=== PATIENT | male | born 1980 | race American Indian/Alaskan Native ===

== ENCOUNTER 2024-08-19 14:36 | Emergency (ER) | payer MEDICAID, OTHER ==
[~2024-08-19] VITALS: Ht 188 cm; Wt 128.8 kg
[2024-08-19 15:28] LABS: Basophils # (auto) 0 10 ^3/uL (0-0.2); Basophils % (auto) 0.3 % (0.0-2.0); Eosinophils # (auto) 0.1 10 ^3/uL (0-0.8); Eosinophils % (auto) 1.6 % (0.0-7.0); Lymphocytes # (auto) 1.2 10 ^3/uL (0.4-5.4); Monocytes # (auto) 0.5 10 ^3/uL (0-1.3)
[2024-08-19 15:31] LABS: Chloride 107 mmol/L (98-107); Hematocrit 49.1 % (41.0-53.0); Hemoglobin 17.4 g/dL (13.5-17.5); Lymphocytes % (auto) 16.3 % (10.0-50.0); Mean Corpuscular Hemoglobin 34.1 pg (28.0-32.0); Mean Corpuscular Hgb Conc. 35.3 g/dL (32.0-36.0); Mean Corpuscular Volume 96.4 fL (80.0-100.0); Monocytes % (auto) 6.2 % (0.0-12.0); Neutrophils # (auto) 5.5 10 ^3/uL (1.6-8.6); Neutrophils % (auto) 75.6 % (37.0-80.0); Nucleated Red Blood Cells % 0.6 %; Platelet Count (auto) 185 10^3/uL (140-450); Potassium 4.4 mmol/L (3.5-5.1); Red Cell Distribution Width 12.8 % (11.8-14.3); Sodium 142 mmol/L (136-145); White Blood Cell 7.3 10^3/uL (4.4-10.8)
[2024-08-19 15:32] LABS: Anion Gap 5 (5-15); Calcium 9.7 mg/dL (8.7-10.4); Carbon Dioxide 30 mmol/L (20-31)
[2024-08-19 15:37] LABS: BUN/Creatinine Ratio 17.3 (10.0-20.0); Blood Urea Nitrogen 17 mg/dL (9-23); Glucose 107 mg/dL (74-106)
[2024-08-19] MEDS ORDERED: PANT40TA2 PO (16:33)
[2024-08-19 16:43] LABS: Urine Bacteria None Seen /hpf (None Seen)
[2024-08-19 17:05] LABS: Urine Blood Negative /uL (Negative); Urine Clarity Clear (Clear); Urine Color Yellow (Yellow); Urine Mucus FEW (None Seen); Urine Protein, UAD Negative (Negative); Urine Specific Gravity 1.029 (1.001-1.035); Urine Urobilinogen Normal (Negative); Urine WBC 1 /hpf (0 - 3); Urine pH 5.5 (5.0-9.0)
[2024-08-19] MEDS: MAALOX PLUS or MAALOX 30 ML PO ONE (17:15)
[2024-08-19] MEDS: DONNATAL 5ml ORAL Elix (BELLADONNA ALK-PHENOBARB) PO ONE (17:15)
[2024-08-19] MEDS: LIDOCAINE VISCOUS 2% 15ML UD PO ONE (17:15)
[2024-08-19 17:30] VITALS: BP 121/63; PULSE 85; RESP 19; TEMP 98; O2SAT 98
== END 2024-08-19 17:32 | disposition home or self-care (01) ==
LOC: ER 14:36
DX: K29.70 Gastritis, unspecified, without bleeding (principal); Z79.899 Other long term (current) drug therapy
CPT/HCPCS: 36415; 80048; 81001; 85025

== ENCOUNTER 2024-11-12 12:07 | Emergency (ER) | payer MEDICAID ==
[~2024-11-12] VITALS: Ht 188 cm; Wt 130.7 kg
[~2024-11-12 12:07] MED LIST: PANT40TA2 PO
--- NOTE | 2024-11-12 12:54 | ED.PDOC ---
GI ASSESSMENT HPI Comments 43y M who presents to the ED for chief complaint of abdominal pain. Pt states 1 days prior, during 12 PM noon, pt states he noticed blood in stool. Pt states afterwards, he started to have epigastric abdominal pain, non-radiating, burning in nature, with no associated exacerbating or relieving factors. Pt has associated nausea but denies vomiting, fever, cough ,chills, dysuria, chest pain or shortness of breath. Pt states he also has bowel movement earlier this AM and denies any blood in stool. Pt otherwise states he has been taking olympic starting 6 months prior. Pt has noted stable vitals in the ED. Pt otherwise denies any other symptoms at this time. Chief Complaint: Abdominal Pain Time Seen by MD: 12:50 Primary Care Provider: ZARIA Dawson Notes: Nurses Notes, Medications, Allergies Allergies: Coded Allergies: NO KNOWN ALLERGIES (Unverified , 08/19/24) Home Meds Active Scripts Hydrocortisone Acetate (Anusol-Hc) 25 Mg Sup, 1 SUPP OR BID, #14 SUPP Prov:RAMA ARNOLD MD 11/12/24 Pantoprazole Sodium Sesquihydr (Protonix) 40 Mg Tab, 40 MG PO DAILY for 5 Days, #5 TAB Prov:RAMA ARNOLD MD 11/12/24 Information Source: Patient Mode of Arrival: Ambulatory Brought in by: self Timing: Hours Duration: Since onset Prehospital treatment: None Quality: Burning Vomitus: None Stool: Blood Streaked Severity: Moderate Recent: None Recent Hx of: Diabetes Pain Location: Epigastric Modifying Factors: Nothing Associated sign and symptoms: Nausea, Abdominal Pain, Blood in Stool Past Medical History PAST MEDICAL HISTORY: DM Surgical History: Denies all surgeries Family History Family History: Unknown Social History Smoker: Non-Smoker Alcohol: Denies ETOH Use Drugs: Denies Drug Use Lives In: Home Constitutional: denies: chills, diaphoresis, fatigue, fever, malaise, sweats, weakness, others EENTM: denies: blurred vision, double vision, ear bleeding, ear discharge, ear drainage, ear pain, ear ringing, eye pain, eye redness, hearing loss, mouth pain, mouth swelling, nasal discharge, nose bleeding, nose congestion, nose pain, photophobia, tearing, throat pain, throat swelling, voice changes, others Respiratory: denies: cough, hemoptysis, orthopnea, SOB at rest, shortness of breath, SOB with excertion, stridor, wheezing, others Cardiovascular: denies: chest pain, dizzy spells, diaphoresis, Dyspnea on exertion, edema, irregular heart beat, left arm pain, lightheadedness, palpitations, PND, syncope, others Gastrointestinal: reports: abdominal pain, blood streaked bowels, nausea; denies: abdomen distended, constipated, diarrhea, dysphagia, difficulty swallowing, hematemesis, melena, poor appetite, poor fluid intake, rectal bleeding, rectal pain, vomiting, others Genitourinary: denies: burning, dysuria, flank pain, frequency, hematuria, incontinence, penile discharge, penile sore, pain, testicle pain, testicle swelling, urgency, others Neurological: denies: dizziness, fainting, headache, left sided numbness, left sided weakness, numbness, paresthesia, pre-existing deficit, right sided numbness, right sided weakness, seizure, speech problems, tingling, tremors, weakness, others Musculoskeletal: denies: back pain, gout, joint pain, joint swelling, muscle pain, muscle stiffness, neck pain, others Integumetry: denies: bruises, change in color, change in hair/nails, dryness, laceration, lesions, lumps, rash, wounds, others Allergic/Immunocompromised: denies: Difficulty Healing, Frequent Infections, Hives, Itching, others Hematologic/Lymphatic: denies: anemia, blood clots, easy bleeding, easy bruising, swollen glands, others Endocrine: denies: excessive hunger, excessive sweating, excessive thirst, excessive urination, flushing, intolerance to cold, intolerance to heat, unexplained weight gain, unexplained weight loss, others Psychiatric: denies: anxiety, bipolar disorder, depression, hopeless, panic disorder, schizophrenia, sleepless, suicidal, others All Other Systems: Reviewed and Negative Physical Exam General Appearance: Mild Distress HEENT: Normal ENT Inspection, Pharynx Normal, TMs Normal Neck: Full Range of Motion, Non-Tender, Normal, Normal Inspection Respiratory: Chest Non-Tender, Lungs Clear, No Accessory Muscle Use, No Re spiratory Distress, Normal Breath Sounds Cardiovascular: No Edema, No JVD, No Murmur, No Gallop, Normal Peripheral Pulses, Regular Rate/Rhythm Breast Exam: Deferred Gastrointestinal: No Organomegaly, Non Tender, No Pulsatile Mass, Normal Bowel Sounds, Soft Genitalia: Deferred Pelvic: Deferred Rectal: Deferred Extremities: No calf tenderness, Normal capillary refill, Normal inspection, Normal range of motion, Non-tender, No pedal edema Musculoskeletal : Apperance: Normal 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 Was a procedure done?: No GI differential Dx Differential Diagnosis: Diverticular disease, Esophagitis, Gastritis/PUD, Gastroenteritis, GI hemorrhage, Pancreatitis, Bacterial, Viral Other Differential Diagnosis colitis, X-Ray, Labs, Meds, VS Vital Signs Date Time Temp Pulse Resp B/P (MAP) Pulse Ox O2 Delivery O2 Flow Rate FiO2 11/12/24 12:51 Room Air* 0 21 11/12/24 12:18 98.0 83 17 127/71 (89) 96 Lab Test 11/12/24 12:54 11/12/24 12:52 Range/Units Urine Color Yellow Yellow Urine Clarity Clear Clear Urine pH 5.5 5.0-9.0 Urine Specific Artemas 1.026 1.001-1.035 Urine Protein Negative Negative Urine Ketones Negative Negative Urine Blood Negative Negative /uL Urine Nitrite Negative Negative Urine Bilirubin Negative Negative Urine Urobilinogen Normal Negative mg/dL Urine Leukocyte Esterase Negative Negative /uL Urine RBC <1 0 - 3 /hpf Urine WBC <1 0 - 3 /hpf Urine Squamous Epithelial Cells None seen <5 /hpf Urine Bacteria None seen None Seen /hpf Urine Mucus Few None Seen Urine Glucose Normal Normal mg/dL White Blood Count 7.1 4.4-10.8 10^3/uL Red Blood Count 4.95 4.5-5.90 10^6/uL Hemoglobin 16.7 13.5-17.5 g/dL Hematocrit 47.8 41.0-53.0 % Mean Corpuscular Volume 96.5 80.0-100.0 fL Mean Corpuscular Hemoglobin 33.7 H 28.0-32.0 pg Mean Corpuscular Hemoglobin Concent 34.9 32.0-36.0 g/dL Red Cell Distribution Width 12.8 11.8-14.3 % Platelet Count 189 140-450 10^3/uL Mean Platelet Volume 8.3 6.9-10.8 fL Neutrophils (%) (Auto) 82.9 H 37.0-80.0 % Lymphocytes (%) (Auto) 11.8 10.0-50.0 % Monocytes (%) (Auto) 3.8 0.0-12.0 % Eosinophils (%) (Auto) 1.3 0.0-7.0 % Basophils (%) (Auto) 0.2 0.0-2.0 % Neutrophils # (Auto) 5.9 1.6-8.6 10 ^3/uL Lymphocytes # (Auto) 0.8 0.4-5.4 10 ^3/uL Monocytes # (Auto) 0.3 0-1.3 10 ^3/uL Eosinophils # (Auto) 0.1 0-0.8 10 ^3/uL Basophils # (Auto) 0 0-0.2 10 ^3/uL Nucleated Red Blood Cells 0.0 % Sodium Level 141 136-145 mmol/L Potassium Level 4.1 3.5-5.1 mmol/L Chloride Level 109 H 98-107 mmol/L Carbon Dioxide Level 28 20-31 mmol/L Anion Gap 4 L 5-15 Blood Urea Nitrogen 12 9-23 mg/dL Creatinine 0.87 0.700-1.30 mg/dL Glomerular Filtration Rate Calc 109 >90 mL/min BUN/Creatinine Ratio 13.8 10.0-20.0 Serum Glucose 111 H 74-106 mg/dL Calcium Level 9.7 8.7-10.4 mg/dL Total Bilirubin 1.7 H 0.2-1.0 mg/dL Aspartate Amino Transferase (AST) 29 13-40 U/L Alanine Aminotransferase (ALT) 50 H 7-40 U/L Alkaline Phosphatase 94 46-116 U/L Total Protein 7.2 5.7-8.2 g/dL Albumin 4.5 3.2-4.8 g/dL Lipase 61 H 12-53 U/L Exam: CT CT AB PEL WO CON-NO ORAL OR IV IMPRESSION: 1. No acute abdominal or pelvic findings. No hydronephrosis or nephrolithiasis. Possible proteinaceous or hemorrhagic right renal cyst. Radiation optimization: All CT scans at this facility use at least one of these dose optimization techniques: Automated exposure control mA and/or kV adjustment per patient size (includes targeted exams where dose is matched to clinical indication) or iterative reconstruction. HS:Y The CBC and chemistry panel are within normal limits The lipase is 61 The urine test is negative for any infection At this time, the patient was being discharged The patient will return to the emergency department's the condition worsens. Images Reviewed?: Images reviewed and evaluated by me Time of 1ST Reevaluation: 13:20 Reevaluation 1ST: Unchanged Patient Education/Counseling: Diagnosis, Treatment, Prognosis, Need For Follow Up Family Education/Counseling: No Family Present Additional Information - I reviewed the following notes from patient's past medical encounters: - The following tests were ordered, and results were reviewed by me: (Labs, X-R ay, EKG): cbc, cmp, ua, lipase, ct abdomen w/o contrast - Additional information was gathered from interviewing the following in dependent Historian: (Family, Other Providers, EMT): none - I reviewed and agreed with the following test results read by other provider: (X-ray, CT, US): radiologist - I discussed treatments and results with medical personnel and: (consultants, family): none Departure 1 Departure Time of Disposition: 14:20 Impression: Primary Impression: Rectal bleeding Additional Impression: Internal hemorrhoids Disposition: 01 HOME / SELF CARE / HOMELESS Condition: Fair e-Prescriptions Hydrocortisone Acetate (Anusol-Hc) 25 Mg Sup 1 SUPP OR BID, #14 SUPP Prov: RAMA ARNOLD MD 11/12/24 Pantoprazole Sodium Sesquihydr (Protonix) 40 Mg Tab 40 MG PO DAILY for 5 Days, #5 TAB Prov: RAMA ARNOLD MD 11/12/24 Discharged With: Self Critical Care Note Critical Care Time?: No Stability Stability form required: No Heart Score Heart Score: Heart Score Response (Comments) Value History N/A 0 EKG N/A 0 Age N/A 0 Risk Factors N/A 0 Troponin N/A 0 Total 0 I personally scribed for RAMA ARNOLD MD ([email or web address]) on 11/12/24 at 12:54. Electronically submitted by Jose Slaughter ([email or web address]). I personally scribed for RAMA ARNOLD MD ([email or web address]) on 11/12/24 at 14:16. Electronically submitted by Jose Slaughter ([email or web address]). RAMA ARNOLD MD Nov 12, 2024 12:54
--- NOTE | 2024-11-12 13:18 | DVH ---
Exam: CT CT AB PEL WO CON-NO ORAL OR IV History: pain Comparison Study: None Technique: Multidetector spiral CT of the abdomen and pelvis was performed from lung bases to pubic symphysis. Imaging was performed without IV contrast. Axial, coronal and sagittal multiplanar reform ats were obtained from the axial data set by the technologist. Radiation dose : Abdomen/Pelvis: CTDIvol 25 mGy, DLP 1571 mGy*cm. Findings: Evaluation of solid organs is limited due to lack of intravenous contrast use. Lung Bases: No acute or significant lung base finding. Normal heart size. No pleural or pericardial effusion. Liver: The liver is normal in size. No focal lesions. Gallbladder and biliary Tree: Unremarkable Spleen: Unremarkable Pancreas: The pancreas is grossly normal in appearance. Adrenal Glands: Unremarkable Kidneys: No hydronephrosis or nephrolithiasis. Exophytic right renal cystic lesion, likely a proteina ceous or hemorrhagic cyst. Bladder: Grossly unremarkable for degree of distention. Bowel: The stomach is grossly normal in appearance. Small bowel and colon are normal in caliber and d istribution. Normal appendix is visualized in the right lower quadrant without findings of appendici tis. Ascites: Absent Lymphadenopathy: No mesenteric, retroperitoneal or periportal lymphadenopathy. Abdominal wall and Mesentery: Unremarkable. Vasculature: The visualized abdominal aorta is normal in size and caliber. Evaluation of abdominal a nd pelvic vessels is limited due to lack of intravenous contrast. Pelvic Organs: Unremarkable Musculoskeletal: No aggressive focal bony lesions, acute fractures or dislocation. IMPRESSION: 1. No acute abdominal or pelvic findings. No hydronephrosis or nephrolithiasis. Possible proteinaceou s or hemorrhagic right renal cyst. Radiation optimization: All CT scans at this facility use at least one of these dose optimization jamie hniques: Automated exposure control mA and/or kV adjustment per patient size (includes targeted exams where dose is matched to clinical indication) or iterative reconstruction. HS:Y
[2024-11-12 13:31] LABS: Urine Bacteria None Seen /hpf (None Seen)
[2024-11-12 13:41] LABS: Basophils # (auto) 0 10 ^3/uL (0-0.2); Basophils % (auto) 0.2 % (0.0-2.0); Eosinophils # (auto) 0.1 10 ^3/uL (0-0.8); Eosinophils % (auto) 1.3 % (0.0-7.0); Hematocrit 47.8 % (41.0-53.0); Hemoglobin 16.7 g/dL (13.5-17.5); Lymphocytes # (auto) 0.8 10 ^3/uL (0.4-5.4); Lymphocytes % (auto) 11.8 % (10.0-50.0); Mean Corpuscular Hemoglobin 33.7 pg (28.0-32.0); Mean Corpuscular Hgb Conc. 34.9 g/dL (32.0-36.0); Mean Corpuscular Volume 96.5 fL (80.0-100.0); Monocytes # (auto) 0.3 10 ^3/uL (0-1.3); Monocytes % (auto) 3.8 % (0.0-12.0); Neutrophils # (auto) 5.9 10 ^3/uL (1.6-8.6); Neutrophils % (auto) 82.9 % (37.0-80.0); Platelet Count (auto) 189 10^3/uL (140-450); Red Blood Cells 4.95 10^6/uL (4.5-5.90); Red Cell Distribution Width 12.8 % (11.8-14.3); White Blood Cell 7.1 10^3/uL (4.4-10.8)
[2024-11-12 13:46] LABS: Albumin 4.5 g/dL (3.2-4.8); Alkaline Phosphatase 94 U/L (46-116); Anion Gap 4 (5-15); Aspartate Aminotransferase 29 U/L (13-40); BUN/Creatinine Ratio 13.8 (10.0-20.0); Blood Urea Nitrogen 12 mg/dL (9-23); Calcium 9.7 mg/dL (8.7-10.4); Carbon Dioxide 28 mmol/L (20-31); Potassium 4.1 mmol/L (3.5-5.1); Sodium 141 mmol/L (136-145); Total Protein 7.2 g/dL (5.7-8.2)
[2024-11-12 13:55] LABS: Urine Blood Negative /uL (Negative); Urine Clarity Clear (Clear); Urine Color Yellow (Yellow); Urine Mucus FEW (None Seen); Urine Protein, UAD Negative (Negative); Urine Specific Gravity 1.026 (1.001-1.035); Urine Squamous Epithelial Cell None Seen /hpf (<5); Urine Urobilinogen Normal (Negative); Urine WBC <1 /hpf (0 - 3); Urine pH 5.5 (5.0-9.0)
[2024-11-12 13:56] LABS: Alanine Aminotransferase 50 U/L (7-40); Bilirubin, Total 1.7 mg/dL (0.2-1.0); Chloride 109 mmol/L (98-107); Glucose 111 mg/dL (74-106); Lipase 61 U/L (12-53)
[2024-11-12] MEDS ORDERED: PANT40TA2 PO (14:19)
[2024-11-12] MEDS ORDERED: HYDR25SU21 PR (14:19)
[2024-11-12 14:39] VITALS: BP 104/73; PULSE 80; RESP 16; TEMP 98.2; O2SAT 96
== END 2024-11-12 14:41 | disposition home or self-care (01) ==
LOC: ER 12:07
DX: K64.8 Other hemorrhoids (principal); K92.1 Melena; E11.9 Type 2 diabetes mellitus without complications; Z79.899 Other long term (current) drug therapy
CPT/HCPCS: 36415; 74176; 80053; 81001; 83690; 85025

== ENCOUNTER 2025-07-20 11:10 | Inpatient (IN) | payer MEDICAID ==
[~2025-07-20] VITALS: Ht 185.4 cm; Wt 125.0 kg
[~2025-07-20 11:10] MED LIST changes: +HYDR25SU21 PR
--- NOTE | 2025-07-20 11:23 | ED.PDOC ---
Eye-HPI HPI Comments HPI: Poor Historian. 44-year-old male brought in by ambulance for evaluation of fever generalized weakness status post tonsillectomy one-week ago at somebody [facility]. Patient has been doing fine and saw his postoperative follow up this past Saturday yesterday and was told everything looks fine. Patient today started developing fever greater than 102 and persistent sore throat without bleeding and generalized weakness and chills. Per EMS, patient was tachycardic in the 160s and hypertensive in the 170s systolically with stable pulse ox. EMS gave him some Zofran for nausea. Patient's only complaint at this time is sore throat pain that is the same since he had his surgery. Patient has not been taking any antibiotics or any pain medications at home. Past Medical History: Diabetes Past Surgical History: Tonsillectomy REVIEW OF SYSTEMS: CONSTITUTIONAL: Denies acute: diaphoresis, HEAD: Denies acute: headache, photophobia Eyes: Denies acute: Double vision, vision loss, eye pain, eye discharge. EARS: Denies acute: tinnitus, hearing loss, ear discharge, ear pain, THROAT: Denies acute: swelling, difficulty swallowing , change in voice. NECK: Denies acute: neck pain, neck swelling, stiff neck. HEART: Denies acute : chest pain, palpitations, LUNGS: Denies acute: SOB, wheezing, cough, hemoptysis ABDOMEN: Denies acute: abdominal pain, Nausea, Vomiting, diarrhea, melena , hematemesis, hematochezia SKIN: Denies acute: rash, redness, lesions, itchiness. EXTREMITIES: Denies acute: calf pain, numbness, tingling, weakness, denies pain in extremity. Denies acute: Low back pain. Neuro: Denies acute: focal neurological deficit, motor or sensory focal neurological deficit, tremors, seizure like activity, confusion, dizziness, change in mental status, loss of bowel or bladder function, cauda equina like symptoms. : Denies acute: dysuria, hematuria, flank pain, increase in urinary frequency. PSYCH: Denies acute: hallucination, suicidal ideation, homicidal ideation. PHYSICAL EXAM: General: ----[id number]----acute distress, awake and alert. Head: normocephalic, atraumatic. Neck: supple, trachea is midline, no swelling. Throat: Normal phonation. No bleeding. Normal postsurgical findings. No airway obstruction, no swelling, no drooling. Eyes:, no erythema, no purulent discharge, no proptosis, no icterus. Heart: regular tachycardia, no significant murmur appreciated. Lungs: no apparent respiratory distress, Able to speak in full sentences. No wheezing, no rhonchi, no crackles. No stridors Clear to auscultation bilaterally. Abdomen: non tender to palpation, non distended, soft, no guarding, no rebound, + bowel sounds. Neuro: Awake, Alert, oriented to name, self, situation, follows commands GCS=15. Speech is normal. Skin: no petechia, no purpura, no cyanosis, non-pale, not jaundice. Lower extremities: --no - Pitting edema no deformity, no focal swelling, no calf TTP. Makes eye contact. moves all four extremities. Face: no apparent facial droop. No nuchal rigidity, Kernig's sign, Brudzinski's sign, no meningeal signs. ED COURSE: DISCLAIMER: This medical document was created using an electronic medical record system with voice recognition software and computerized dictation system. Although this d ocument has been carefully reviewed, there might still be some phonetic and typographical errors. Occasional wrong-word or "sound-alike" substitutions may have occurred due to the inherent limitations of voice recognition software. These areas are purely typographical due to imperfections of the software programs and do not reflect any compromise in the patient's medical care. Please read the chart carefully and recognize, using context, where these substitutions have occurred. Time Seen by MD: 11:23 Primary Care Provider: ZARIA Allergies: Coded Allergies: NO KNOWN ALLERGIES (Unverified , 08/19/24) Home Meds Active Scripts Hydrocortisone Acetate (Anusol-Hc) 25 Mg Sup, 1 SUPP RI BID, #14 SUPP Prov:RAMA ARNOLD MD 11/12/24 Pantoprazole Sodium Sesquihydr (Protonix) 40 Mg Tab, 40 MG PO DAILY for 5 Days, #5 TAB Prov:RAMA ARNOLD MD 11/12/24 Information Source: Patient, Emergency Med Personnel Was a procedure done? Was a procedure done?: No EENT DIFF Eye: N/A Ear: N/A Sore Throat: Epiglottitis, Hand Foot Mouth Disease, Herpangina, Herpetic Stomatitis, Mononeucleosis, Miguelito's Angina, Peritonsillar Abscess, Peritonsillar Cellulitis, Pharyngitis, Diptheria, Streptococcal, Viral Pharyngitis, URI Other Differential Diagnosis As far as generalized weakness: Includes but not limited to thyroid disease, encephalopathy, electrolyte abnormality, sepsis, infection, intracranial pathology, drug adverse effects, arrhythmia, kidney insufficiency, ACS, CVA, malignancy, anemia X-Ray, Labs, Meds, VS Vital Signs Date Time Temp Pulse Resp B/P (MAP) Pulse Ox O2 Delivery O2 Flow Rate FiO2 07/20/25 15:00 98 13 124/81 (95) 94 07/20/25 13:00 95 Nasal Cannula* 2 28 07/20/25 13:00 97.4 109 15 134/79 (97) 95 97.4 07/20/25 12:25 Nasal Cannula* 2 28 07/20/25 12:00 121 07/20/25 12:00 100.3 119 20 126/74 (91) 96 100.3 07/20/25 11:49 106/74 07/20/25 11:30 101.2 162 22 134/102 98 101.2 07/20/25 11:11 159 Lab Test 07/20/25 15:49 07/20/25 11:40 07/20/25 11:35 07/20/25 00:00 Range/Units Influenza Type A Antigen Negative Negative Influenza Type B Antigen Negative Negative Group A Streptococcus Rapid Negative Urine Color Yellow Yellow Urine Clarity Clear Clear Urine pH 6.0 5.0-9.0 Urine Specific Wilkinson 1.037 H 1.001-1.035 Urine Protein 1+ H Negative Urine Ketones Trace Negative Urine Blood Negative Negative /uL Urine Nitrite Negative Negative Urine Bilirubin Negative Negative Urine Urobilinogen Over Negative mg/dL Urine Leukocyte Esterase Negative Negative /uL Urine RBC 8 0 - 3 /hpf Urine Microscopic WBC 1 0-3 /HPF Urine Squamous Epithelial Cells Few <5 /hpf Urine Bacteria None seen None Seen /hpf Urine Mucus Few None Seen Urine Glucose 3+ H Normal mg/dL Urine Opiates Screen Pos NEGATIVE Urine Fentanyl Screen Neg NEGATIVE Urine Barbiturates Screen Neg NEGATIVE Urine Phencyclidine Screen Neg NEGATIVE Urine Amphetamines Screen Neg NEGATIVE Urine Benzodiazepines Screen Neg NEGATIVE Urine Cocaine Screen Neg NEGATIVE Urine Cannabinoids Screen Neg NEGATIVE White Blood Count 8.0 4.4-10.8 10^3/uL Red Blood Count 4.79 4.5-5.90 10^6/uL Hemoglobin 16.0 13.5-17.5 g/dL Hematocrit 44.4 41.0-53.0 % Mean Corpuscular Volume 92.7 80.0-100.0 fL Mean Corpuscular Hemoglobin 33.4 H 28.0-32.0 pg Mean Corpuscular Hemoglobin Concent 36.0 32.0-36.0 g/dL Red Cell Distribution Width 12.2 11.8-14.3 % Platelet Count 175 140-450 10^3/uL Mean Platelet Volume 7.7 6.9-10.8 fL Neutrophils (%) (Auto) 90.8 H 37.0-80.0 % Lymphocytes (%) (Auto) 4.7 L 10.0-50.0 % Monocytes (%) (Auto) 4.5 0.0-12.0 % Eosinophils (%) (Auto) 0.0 0.0-7.0 % Basophils (%) (Auto) 0.0 0.0-2.0 % Neutrophils # (Auto) 7.3 1.6-8.6 10 ^3/uL Lymphocytes # (Auto) 0.4 0.4-5.4 10 ^3/uL Monocytes # (Auto) 0.4 0-1.3 10 ^3/uL Eosinophils # (Auto) 0 0-0.8 10 ^3/uL Basophils # (Auto) 0 0-0.2 10 ^3/uL Nucleated Red Blood Cells 0.1 % Prothrombin Time 12.7 H 9.3-11.8 sec Prothrombin Time INR 1.22 H 0.9-1.15 Activated Partial Thromboplast Time 28.1 24.5-34.5 SEC Sodium Level 132 L 136-145 mmol/L Potassium Level 4.1 3.5-5.1 mmol/L Chloride Level 96 L 98-107 mmol/L Carbon Dioxide Level 24 20-31 mmol/L Anion Gap 12 5-15 Blood Urea Nitrogen 10 9-23 mg/dL Creatinine 0.79 0.700-1.30 mg/dL Glomerular Filtration Rate Calc 112 >90 mL/min BUN/Creatinine Ratio 12.7 10.0-20.0 Serum Glucose 279 H 74-106 mg/dL Hemoglobin A1c 6.0 H <5.7 % A1C Lactic Acid Level 1.9 0.4-2.0 mmol/L Calcium Level 8.9 8.7-10.4 mg/dL Magnesium Level 1.7 1.6-2.6 mg/dL Total Bilirubin 3.6 H 0.2-1.0 mg/dL Aspartate Amino Transferase (AST) 29 13-40 U/L Alanine Aminotransferase (ALT) 38 7-40 U/L Alkaline Phosphatase 117 H 46-116 U/L Troponin I High Sensitivity 3 L </=54 ng/L Total Protein 7.3 5.7-8.2 g/dL Albumin 4.3 3.2-4.8 g/dL Acetaminophen Level 3.0 L 10.0-20.0 UG/ML SARS-CoV-2 Antigen (Rapid) Negative NEGATIVE Microbiology Date/Time Source Procedure Growth Status 07/20/25 15:49 Throat Nose/Throat Culture - Preliminary Resulted 07/20/25 11:40 Voided Urine Urine Culture - Preliminary Resulted 07/20/25 11:35 Blood Blood Culture - Preliminary Resulted 07/20/25 11:35 Blood Blood Culture - Preliminary Resulted [place] [address] Ph: [phone] DIAGNOSTIC IMAGING Diagnostic Imaging Report : [id number] Signed PATIENT: RAQUEL PARK ACCT: [id number] UNIT: [id number] : 1980 LOC: ER ROOM / BED: / AGE / SEX: 44 / M ADM STATUS: REG ER SERVICE 1121 ORDERING PHYSICIAN: ROXANA REILLY DO PROCEDURE(s): CXRP - CHEST PORTABLE REASON: tachy fever ORDER NUMBER(s): [id number], ACCESSION NUMBER(s): [id number] EXAM: XY CHEST PORTABLE Indication: tachy fever Technique: Single frontal view of the chest was obtained Comparison: None FINDINGS: Lines and Tubes: None Lungs: No focal consolidation. Pleura: No effusion. No pneumothorax. Cardiomediastinal contours: Unremarkable Bones: No acute osseous abnormality. IMPRESSION: No acute cardiopulmonary disease. ATED BY: RHONDA HOLDEN MD DICTATED DATE/TIME: 07/20/251213 SIGNED BY: RHONDA HOLDEN MD SIGNED DATE/TIME: 07/20/251213 CC: Time of 1ST Reevaluation: 11:53 Reevaluation 1ST: N/A Patient Education/Counseling: Diagnosis, Treatment Family Education/Counseling: Other Comments MDM: patient presented with the above HPI.--fever generalized weak---workup was initiated. patient was found with the above mentioned diagnosis. the following medications were ordered: please refer to order lists of meds and tests obtained by myself Dr. Reilly. Patient ED course and VS have been stabilized. Patient has been reassessed in the ED and remained in a stable condition. Pertinent incidental findings were discussed with the patient and/or family. Patient/family voices understanding and is agreeable with plan. Patient has been observed in the ED adequate length of time to insure improvement/stability. Escalation of care considered: Consideration of escalation to observation or admission Patient was ADMITTED to the medicine team for further evaluation and treatment of their presentation. Sepsis criteria on arrival based on heart rate and tachypnea and finger and clinical picture. Sepsis bundle was initiated. All the reports of any imaging studies that were ordered by myself were reviewed by myself. 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 (07/20/25 ) Electrocardigram (07/20/25 11:21) Chest Portable (07/20/25 11:21) Accucheck (07/20/25 11:21) Blood Culture (07/20/25 11:21) Notify Md If Map <65 Or Bp<90 (07/20/25 11:21) If Map<65 Start Vasopressor (07/20/25 11:21) Sepsis Reassesment After Fluid (07/20/25 12:21) Vital Signs Date Time Temp Pulse Resp B/P (MAP) Pulse Ox O2 Delivery O2 Flow Rate FiO2 07/20/25 15:00 98 13 124/81 (95) 94 07/20/25 13:00 95 Nasal Cannula* 2 28 07/20/25 13:00 97.4 109 15 134/79 (97) 95 97.4 07/20/25 12:25 Nasal Cannula* 2 28 07/20/25 12:00 121 07/20/25 12:00 100.3 119 20 126/74 (91) 96 100.3 07/20/25 11:49 106/74 07/20/25 11:30 101.2 162 22 134/102 98 101.2 07/20/25 11:11 159 Laboratory Tests Test 07/20/25 11:35 Lactic Acid Level 1.9 mmol/L (0.4-2.0) White Blood Count 8.0 10^3/uL (4.4-10.8) Departure 1 Departure Time of Disposition: 12:09 Impression: Primary Impression: Sepsis Disposition: ADMITTED INPATIENT Admit to: [facility] Condition: Guarded Discharged With: Self Critical Care Note Critical Care Time?: Yes (1 hr-critical care time only) I personally scribed for ROXANA REILLY DO ([email or web address]) on 07/20/25 at 11:23. Electronically submitted by Jyotsna Jean ([email or web address]). I personally scribed for ROXANA REILLY DO ([email or web address]) on 07/20/25 at 12:49. Electronically submitted by Jyotsna Jean ([email or web address]). ROXANA REILLY DO Jul 20, 2025 11:23
--- NOTE | 2025-07-20 11:26 | ECG ---
[facility] Test Date: 2025-07-20 Test Time: 11:11:31 Pat Name: RAQUEL PARK Department: Room: [address] [place] [address] Gender: M Photograph Mounter: LUCIANA : 1980 Requested By: ROXANA REILLY Order Number: [id number] Reading MD: Jacques Machado Measurements Intervals [place]stein Rate: 159 P: 40 WI: 117 QRS: 261 QRSD: 93 T: 55 QT: 301 QTc: 490 Interpretive Statements Sinus tachycardia Left anterior fascicular block Abnormal R-wave progression, late transition Borderline prolonged QT interval Electronically Signed On 07-20-2025 16:40:04 PDT by Jacques Machado Please click the below link to view image of tracing.
[2025-07-20] MEDS: LACTATED RINGER'S 2,400 ML IV ONE (11:46)
[2025-07-20] MEDS ORDERED: CEFEPIME 1GM/50ML 50 ML IV ONE (11:46)
[2025-07-20] MEDS: CEFEPIME 1GM/50ML 50 ML IV ONE (11:48)
[2025-07-20] MEDS: fentaNYL CITRATE 100 MCG/2 ML VL IV ONE (11:49)
[2025-07-20 12:05] LABS: Hematocrit 44.4 % (41.0-53.0); Hemoglobin 16.0 g/dL (13.5-17.5); Mean Corpuscular Hemoglobin 33.4 pg (28.0-32.0); Mean Corpuscular Volume 92.7 fL (80.0-100.0); Nucleated Red Blood Cells % 0.1 %
[2025-07-20 12:13] LABS: INR 1.22 (0.9-1.15); Partial Thromboplastin Time 28.1 SEC (24.5-34.5); Prothrombin Time 12.7 sec (9.3-11.8)
--- NOTE | 2025-07-20 12:16 | DVH ---
EXAM: XY CHEST PORTABLE Indication: tachy fever Technique: Single frontal view of the chest was obtained Comparison: None FINDINGS: Lines and Tubes: None Lungs: No focal consolidation. Pleura: No effusion. No pneumothorax. Cardiomediastinal contours: Unremarkable Bones: No acute osseous abnormality. IMPRESSION: No acute cardiopulmonary disease.
[2025-07-20 12:17] LABS: Alanine Aminotransferase 38 U/L (7-40); Albumin 4.3 g/dL (3.2-4.8); Anion Gap 12 (5-15); BUN/Creatinine Ratio 12.7 (10.0-20.0); Blood Urea Nitrogen 10 mg/dL (9-23); Calcium 8.9 mg/dL (8.7-10.4); Carbon Dioxide 24 mmol/L (20-31); Magnesium 1.7 mg/dL (1.6-2.6); Potassium 4.1 mmol/L (3.5-5.1); Total Protein 7.3 g/dL (5.7-8.2)
[2025-07-20 12:18] LABS: Alkaline Phosphatase 117 U/L (46-116); Bilirubin, Total 3.6 mg/dL (0.2-1.0); Chloride 96 mmol/L (98-107); Glucose 279 mg/dL (74-106); Sodium 132 mmol/L (136-145)
[2025-07-20 12:37] LABS: Urine Protein, UAD 1+ (Negative)
[2025-07-20 13:00] VITALS: O2SAT 95
[2025-07-20] MEDS ORDERED: DEXTROSE (50%) 50ML SYRG IV PRN (16:15)
[2025-07-20] MEDS ORDERED: SORE THROAT SPRAY 6OZ BOTTLE MT PRN (16:15)
[2025-07-20] MEDS: SODIUM CHLORIDE 0.9% 1,000 ML IV SCH (16:23)
--- NOTE | 2025-07-20 16:41 | DVHHPRES ---
History of Present Illness Resident Creating Document: NICOLE ANTONY RESIDENT Reason for Visit: Generalized weakness History of Present Illness This is a 44-year-old male who was brought in by EMS to the ED with chief complain of fever and generalized weakness. PMH: Type 2 diabetes. PSH: Tonsillectomy performed on 07/14/2025. SH: Denies smoking, illicit drug use, rarely drinks alcohol. Lives with family. 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 FH: Noncontributory Allergies: None Home medications: Zoloft 50 mg p.o. q.d. Patient states that since yesterday he started experiencing fevers and chills accompanied with worsening generalized weakness and mild dizziness. He stated that he underwent a tonsillectomy last week, he states having taking pain medications such as acetaminophen with codeine and Tylenol. Denies taking any other medication. He was taking the pain medication due to his severe throat pain. He denies any recent sick contacts, denies being sick in the last four weeks. Denies any significant shortness of breath, chest pain, abdominal pain, nausea, vomiting, rash. Patient stated that today he was having shakiness in the morning and his heart was beating fast, per EMS he has tachycardia reach the 160s his blood pressure was also in the 170s. On arrival to the ED patient received sepsis protocol such as LR fluids, broad-spectrum antibiotics with cefepime, he also received dexamethasone and fentanyl. On my initial assessment, patient was seen and examined at bedside. Niece was present. Patient was able to communicate and mainly complained of sore throat, he was on supplemental oxygen through nasal cannula at 2 L. Past Medical History See HPI. Past Surgical History See HPI. Family History See HPI. Review of Systems Constitutional: Yes: Fever, Chills, Weakness, Malaise; No: Sweats, Other Eyes: No: Pain, Vision change, Conjunctivae inflammation, Eyelid inflammation, Other, Redness ENT: Throat pain; No: Ear pain, Ear discharge, Nose pain, Nose discharge, Nose congestion, Mouth pain, Mouth swelling, Throat swelling, Other Respiratory: No: Cough, Dry, Shortness of breath, SOB with excertion, Wheezing, Hemoptysis, Pleuritic Pain, Sputum, Wheezing, Other Cardiovascular: Palpitations; No: Chest Pain, Orthopnea, Paroxysmal Noc. Dyspnea, Edema, Lt Headedness, Other Gastrointestinal: No: Nausea, Vomiting, Abdominal Pain, Diarrhea, Constipation, Melena, Hematochezia, Other Genitourinary: No Dysuria, No Frequency, No Incontinence, No Hematuria, No Retention, No Other Musculoskeletal: No: other, neck pain, shoulder pain, arm pain, back pain, hand pain, leg pain, foot pain Skin: No: Rash, Lesions, Jaundice, Bruising, Other Neurological: No: Weakness, Numbness, Incoordination, Change in speech, Confusion, Seizures, Other Allergies: Coded Allergies: NO KNOWN ALLERGIES (Unverified , 08/19/24) Medications Current Medications Medications Dose Ordered Sig/Sherine Route Start Time Stop Time Status Last Admin Dose Admin Sodium Chloride 10 ml Q8HR IV 07/20/25 22:00 UNV Enoxaparin Sodium 40 mg DAILY SC 07/21/25 10:00 UNV Morphine Sulfate 1 mg Q6HPRN PRN IV 07/20/25 16:00 UNV Sodium Chloride 1,000 ml @ 150 mls/hr Q6H40M IV 07/20/25 16:00 UNV Piperacillin Sod/ Tazobactam Sod 100 ml @ 25 mls/hr Q6HR IV 07/20/25 18:00 UNV Diagnostic Test (Pha) 1 strip ACHS 07/20/25 17:00 UNV Insulin Human Regular ACHS SC 07/20/25 17:00 UNV Dextrose 50 ml UD PRN IV 07/20/25 16:15 UNV Exam Vital Signs Vital Signs Date Time Temp Pulse Resp B/P (MAP) Pulse Ox O2 Delivery O2 Flow Rate FiO2 07/20/25 15:00 98 13 124/81 (95) 94 07/20/25 13:00 Nasal Cannula* 2 28 07/20/25 13:00 97.4 97.4 Exam Physical examination as below: General: Awake, alert, in mild distress due to pain. HEENT: Head is normocephalic and atraumatic. Pupils are equal, round, and reactive to light. Extraocular muscles are intact. No nasal discharge. No facial trauma. Intraoral exam shows pharyngeal erythema, white exudate pharyngeal area. Neck: Supple with no cervical lymphadenopathy. Heart: Tachycardia, regular without murmur, rub, or gallop. Lungs: Equal breath sounds bilaterally with no wheezing, rales, or rhonchi. There is no chest wall tenderness or instability. Abdomen: No external sign of injury. Bowel sounds are present. Abdomen is soft, nontender. No rebound, no guarding, no rigidity. There are no palpable masses. There is no flank pain on exam. Extremities: Strong peripheral pulses. There is no clubbing, no cyanosis, and no edema. Skin: No rash. Neurologic: Cranial nerves II-XII intact without motor, sensory, or cerebellar deficit, no asterixis. Labs/Xrays Labs Test 07/20/25 11:40 07/20/25 11:35 Range/Units Urine Color Yellow Yellow Urine Clarity Clear Clear Urine pH 6.0 5.0-9.0 Urine Specific Leon 1.037 H 1.001-1.035 Urine Protein 1+ H Negative Urine Ketones Trace Negative Urine Blood Negative Negative /uL Urine Nitrite Negative Negative Urine Bilirubin Negative Negative Urine Urobilinogen Over Negative mg/dL Urine Leukocyte Esterase Negative Negative /uL Urine RBC 8 0 - 3 /hpf Urine Microscopic WBC 1 0-3 /HPF Urine Squamous Epithelial Cells Few <5 /hpf Urine Bacteria None seen None Seen /hpf Urine Mucus Few None Seen Urine Glucose 3+ H Normal mg/dL White Blood Count 8.0 4.4-10.8 10^3/uL Red Blood Count 4.79 4.5-5.90 10^6/uL Hemoglobin 16.0 13.5-17.5 g/dL Hematocrit 44.4 41.0-53.0 % Mean Corpuscular Volume 92.7 80.0-100.0 fL Mean Corpuscular Hemoglobin 33.4 H 28.0-32.0 pg Mean Corpuscular Hemoglobin Concent 36.0 32.0-36.0 g/dL Red Cell Distribution Width 12.2 11.8-14.3 % Platelet Count 175 140-450 10^3/uL Mean Platelet Volume 7.7 6.9-10.8 fL Neutrophils (%) (Auto) 90.8 H 37.0-80.0 % Lymphocytes (%) (Auto) 4.7 L 10.0-50.0 % Monocytes (%) (Auto) 4.5 0.0-12.0 % Eosinophils (%) (Auto) 0.0 0.0-7.0 % Basophils (%) (Auto) 0.0 0.0-2.0 % Neutrophils # (Auto) 7.3 1.6-8.6 10 ^3/uL Lymphocytes # (Auto) 0.4 0.4-5.4 10 ^3/uL Monocytes # (Auto) 0.4 0-1.3 10 ^3/uL Eosinophils # (Auto) 0 0-0.8 10 ^3/uL Basophils # (Auto) 0 0-0.2 10 ^3/uL Nucleated Red Blood Cells 0.1 % Prothrombin Time 12.7 H 9.3-11.8 sec Prothrombin Time INR 1.22 H 0.9-1.15 Activated Partial Thromboplast Time 28.1 24.5-34.5 SEC Sodium Level 132 L 136-145 mmol/L Potassium Level 4.1 3.5-5.1 mmol/L Chloride Level 96 L 98-107 mmol/L Carbon Dioxide Level 24 20-31 mmol/L Anion Gap 12 5-15 Blood Urea Nitrogen 10 9-23 mg/dL Creatinine 0.79 0.700-1.30 mg/dL Glomerular Filtration Rate Calc 112 >90 mL/min BUN/Creatinine Ratio 12.7 10.0-20.0 Serum Glucose 279 H 74-106 mg/dL Lactic Acid Level 1.9 0.4-2.0 mmol/L Calcium Level 8.9 8.7-10.4 mg/dL Magnesium Level 1.7 1.6-2.6 mg/dL Total Bilirubin 3.6 H 0.2-1.0 mg/dL Aspartate Amino Transferase (AST) 29 13-40 U/L Alanine Aminotransferase (ALT) 38 7-40 U/L Alkaline Phosphatase 117 H 46-116 U/L Troponin I High Sensitivity 3 L </=54 ng/L Total Protein 7.3 5.7-8.2 g/dL Albumin 4.3 3.2-4.8 g/dL SEPSIS Sepsis Screen Date sepsis recognized/suspect: Jul 20, 2025 Time Sepsis recognized/suspect: 1300 Recent Procedure: Yes On Antibiotic Therapy: Yes Respiratory Rate >20: No Heart Rate >90: Yes Temp<36 C (96.8 F) or >38.3 C: Yes SBP <90 or MAP <65 mmHG: No New Acute Mental Status Change: No Is the patient on CPAP, BIPAP,: No Physician Orders Long Filler Cigar Roller Machine (07/20/25 ) Chest Portable (07/20/25 11:21) Accucheck (07/20/25 11:21) Blood Culture (07/20/25 11:21) Cefepime 1gm/50ml (Maxipime 1gm/50ml) (07/20/25 22:00) Notify Md If Map <65 Or Bp<90 (07/20/25 11:21) If Map<65 Start Vasopressor (07/20/25 11:21) Sepsis Reassesment After Fluid (07/20/25 12:21) Admit (07/20/25 15:49) Allergies (07/20/25 15:49) Code Status (07/20/25 15:49) Full Liq Diet (07/20/25 Dinner) Sodium Chloride Lock (Saline Lock Ns) (07/20/25 22:00) Enoxaparin Sodium (Lovenox) (07/21/25 10:00) Complete Blood Count (07/21/25 04:00) Comprehensive Metabolic Panel (07/21/25 04:00) Condition: Fair (07/20/25 15:49) Morphine Sulfate Injection (07/20/25 16:00) Oxygen By Nasal Cannula (07/20/25 15:49) Notify Md Of Changes From Base (07/20/25 15:49) Sodium Chloride 0.9% (07/20/25 16:00) Lactic Acid W/ Reflex Order (07/20/25 15:49) Urine Bacterial Culture (07/20/25 15:49) Covid19 Antigen Génesis (07/20/25 ) Rapid Influenza A&B (07/20/25 15:49) Drug Screen (07/20/25 15:49) Blood Alcohol (07/20/25 15:49) LIVER (07/20/25 15:49) Rapid Strep Screen - Throat (07/20/25 15:49) Hemoglobin A1c (07/20/25 16:02) Zosyn Extended Infusion (07/20/25 18:00) Glucose Blood (Accu-Chek Comfort Curve T (07/20/25 17:00) Mild Sliding Scale (07/20/25 17:00) Dextrose 50% Syringe (07/20/25 16:15) Sore Throat [place] (Chloraseptic) (07/20/25 16:15) Vital Signs Date Time Temp Pulse Resp B/P (MAP) Pulse Ox O2 Delivery O2 Flow Rate FiO2 07/20/25 15:00 98 13 124/81 (95) 94 07/20/25 13:00 95 Nasal Cannula* 2 28 07/20/25 13:00 97.4 109 15 134/79 (97) 95 97.4 07/20/25 12:25 Nasal Cannula* 2 28 07/20/25 12:00 121 07/20/25 12:00 100.3 119 20 126/74 (91) 96 100.3 07/20/25 11:49 106/74 07/20/25 11:30 101.2 162 22 134/102 98 101.2 07/20/25 11:11 159 Laboratory Tests Test 07/20/25 11:35 Lactic Acid Level 1.9 mmol/L (0.4-2.0) White Blood Count 8.0 10^3/uL (4.4-10.8) Medications Medications Dose Ordered Sig/Sherine Route Start Time Stop Time Status Last Admin Dose Admin Cefepime HCl 50 ml @ 50 mls/hr ONCE ONCE IV 07/20/25 11:45 07/20/25 12:44 DC 07/20/25 11:48 50 MLS/HR Dexamethasone Sodium Phosphate 10 mg ONCE ONCE IV 07/20/25 11:30 07/20/25 11:43 DC 07/20/25 11:49 10 MG Fentanyl Citrate 100 mcg ONCE ONCE IV 07/20/25 11:30 07/20/25 11:43 DC 07/20/25 11:49 100 MCG Lactated Ringer's 2,400 ml @ 2,400 mls/hr ONCE ONCE IV 07/20/25 11:30 07/20/25 12:29 DC 07/20/25 11:46 2,400 MLS/HR Assessment/Plan Assessment/Plan #Sepsis, rule out bacteremia, strep throat infection, viral syndrome #Pharyngitis, likely bacterial #Acute hypoxic respiratory failure IV fluid bolus has been given. Continue maintenance fluid NS 150 mL/hour Order lactic acid Pending blood culture, urine culture, rapid strep throat test, COVID, influenza test. Continue Zosyn IV Sore throat spray as needed #Hyperbilirubinemia, rule out liver disease, hepatitis, acetaminophen intoxication #Secondary coagulopathy Order liver ultrasound Order hepatitis panel Order acetaminophen level Order urine tox and alcohol level #Type 2 diabetes with hyperglycemia SSI mild Ordered A1c #Sinus tachycardia due to above #QT prolongation Avoid QT prolonging medications #Obesity Counseled on lifestyle modification We spent over 33 minutes explaining the patient's plan, and had goals of care discussion. Full code Plan discussed with: Patient, Other (RN) My Orders Orders - NICOLE ANTONY RESIDENT Procedure Category Date Status Time Admit ADMIT 07/20/25 Transmitted 15:49 Allergies ELIDIA 07/20/25 In Process 15:49 Code Status CODE 07/20/25 Transmitted 15:49 Full Liq Diet DIET 07/20/25 Transmitted Dinner Sodium Chloride Lock PHA 07/20/25 Logged (Saline Lock Ns) 22:00 Enoxaparin Sodium PHA 07/21/25 Logged (Lovenox) 10:00 Complete Blood Count LAB 07/21/25 Verified 04:00 Comprehensive LAB 07/21/25 Verified Metabolic Panel 04:00 Condition: Fair ELIDIA 07/20/25 In Process 15:49 Morphine Sulfate PHA 07/20/25 Logged Injection 16:00 Oxygen By Nasal RT 07/20/25 Transmitted Cannula 15:49 Notify Of Changes ELIDIA 07/20/25 In Process From Base 15:49 Sodium Chloride 0.9% PHA 07/20/25 Logged 16:00 Lactic Acid W/ Reflex LAB 07/20/25 Logged Order 15:49 Urine Bacterial NADIA 07/20/25 Logged Culture 15:49 Covid19 Antigen Génesis LAB 07/20/25 Logged Rapid Influenza A&B LAB 07/20/25 Logged 15:49 Drug Screen LAB 07/20/25 Logged 15:49 Blood Alcohol LAB 07/20/25 Logged 15:49 LIVER US 07/20/25 Logged 15:49 Rapid Strep Screen - LAB 07/20/25 Logged Throat 15:49 Hemoglobin A1c LAB 07/20/25 Transmitted 16:02 Zosyn Extended PHA 07/20/25 Transmitted Infusion 18:00 Glucose Blood PHA 07/20/25 Transmitted (Accu-Chek Comfort 17:00 Mild Sliding Scale PHA 07/20/25 Transmitted 17:00 Dextrose 50% Syringe PHA 07/20/25 Transmitted 16:15 Sore Throat [place] PHA 07/20/25 Transmitted (Chloraseptic) 16:15 Date of Service: Jul 20, 2025 Billing Provider: NACHO BURNS MD Common Visit Codes: 85794-QLHUSIQ INP/OBS CARE (HIGH) Secondary Visit Codes: [id number] CARE PLAN 30 MINUTES NICOLE ANTONY RESIDENT Jul 20, 2025 16:41 NACHO BURNS MD Jul 24, 2025 00:32
--- NOTE | 2025-07-20 16:53 | DVH ---
Technique: Real-time ultrasound imaging of the abdomen was performed with grayscale and color Doppler . Indication: hyperbilirubinemia Comparison: None Findings: Liver measures 21.4 cm. It is increased in echogenicity and echotexture without focal mass. Portal v ein is normal in caliber and demonstrates normal hepatopetal flow. Gallbladder demonstrates no evidence for cholelithiasis. There is no pericholecystic fluid. The wall thickness is normal. The common bile duct measures 4 mm. No intrahepatic biliary ductal dilatation. The right kidney measures 11.4 cm. There is no hydronephrosis or sonographic evidence of nephrolithia sis. The visualized portion of the pancreas is unremarkable. Spleen measures cm. The visualized portion of the IVC is unremarkable. Impression: Echogenic liver which can be seen with hepatic steatosis, cirrhosis. Hepatomegaly
[2025-07-20 17:20] LABS: Rapid Strep A Screen-Throat Negative
[2025-07-20 17:25] LABS: COVID19 ANTIGEN SOFIA FIA NEGATIVE (NEGATIVE)
[2025-07-20] MEDS: InsuLIN REG 1unit/0.01ml Soln (100units/ml) SC SCH (17:47)
[2025-07-20] MEDS: ACCU-CHEK COMFORT CURVE STRIP VI SCH (17:50)
[2025-07-20] MEDS: PIPERACILLIN-TAZOB 3.375GM 100 ML IV SCH (18:31)
[2025-07-20 20:00] VITALS: BP 120/73; PULSE 97; RESP 18; TEMP 99.1; O2SAT 96
[2025-07-20] MEDS: MORPHINE SULFATE INJ 2 MG/ml SYRG IV PRN (20:20)
[2025-07-20 21:04] VITALS: PULSE 96; RESP 20; O2SAT 96
[2025-07-20] MEDS ORDERED: CEFEPIME 1GM/50ML 50 ML IV SCH (22:00)
[2025-07-20] MEDS: SODIUM CHLOR 0.9% PF (SALINE LOCK) 10ML VIAL/SYR IV SCH (22:01)
[2025-07-20 22:30] VITALS: BP 140/73; PULSE 96; RESP 20; TEMP 98.6; O2SAT 96
[2025-07-20 23:48] LABS: Benzodiazephine Screen, Urine Neg (NEGATIVE)
[2025-07-20 23:49] LABS: Amphetamine Screen, Urine Neg (NEGATIVE); Barbiturate Scree,Urine Neg (NEGATIVE); Cannabinoid Screen, Urine Neg (NEGATIVE); Cocaine Screen, Urine Neg (NEGATIVE); Opiate Scree,Urine Pos (NEGATIVE); Phencyclidine Screen, Urine Neg (NEGATIVE)
[2025-07-21] VITALS (9 sets, daily range): BP systolic 119–143; BP diastolic 70–85; PULSE 90–109; RESP 16–18; TEMP 98.2–103.1; O2SAT 94–97
[2025-07-21 07:57] LABS: Hematocrit 39.5 % (41.0-53.0); Hemoglobin 14.3 g/dL (13.5-17.5); Mean Corpuscular Hemoglobin 33.8 pg (28.0-32.0); Mean Corpuscular Volume 93.2 fL (80.0-100.0); Nucleated Red Blood Cells % 0.1 %
[2025-07-21 07:59] LABS: Alanine Aminotransferase 39 U/L (7-40); Albumin 4.1 g/dL (3.2-4.8); Alkaline Phosphatase 96 U/L (46-116); Anion Gap 10 (5-15); BUN/Creatinine Ratio 12.4 (10.0-20.0); Blood Urea Nitrogen 11 mg/dL (9-23); Calcium 8.7 mg/dL (8.7-10.4); Carbon Dioxide 29 mmol/L (20-31); Potassium 4.1 mmol/L (3.5-5.1); Total Protein 7.0 g/dL (5.7-8.2)
[2025-07-21 08:04] LABS: Bilirubin, Total 2.3 mg/dL (0.2-1.0); Chloride 95 mmol/L (98-107); Glucose 265 mg/dL (74-106); Sodium 134 mmol/L (136-145)
[2025-07-21] MEDS ORDERED: DEXTROSE (50%) 50ML SYRG IV PRN (09:00)
[2025-07-21] MEDS: SODIUM CHLORIDE 0.9% 1,000 ML IV ONE ×3 (11:25→22:26)
[2025-07-21] MEDS: ACCU-CHEK COMFORT CURVE STRIP VI SCH (12:00)
[2025-07-21] MEDS ORDERED: IOHEXOL 300 MG/ML 100ML BOTTLE IJ ONE (12:03)
[2025-07-21] MEDS: SERTRALINE HCL 50 MG TAB PO SCH (13:10)
[2025-07-21] MEDS: InsuLIN REG 1unit/0.01ml Soln (100units/ml) SC SCH (14:00)
[2025-07-21] MEDS: LIDOCAINE 5% TOPICAL PATCH TOP SCH (14:44)
--- NOTE | 2025-07-21 15:16 | DVH ---
CT Neck with Contrast CLINICAL HISTORY: possible abscess, neck pain, swelling TECHNIQUE: CT of the neck was performed with intravenous contrast. This exam was performed according to our departmental dose optimization program. Up-to-date CT equipment and radiation dose reduction t echniques are utilized as appropriate. WID: COMPARISON: None Neck findings: Brain and Orbits: The visualized intracranial and intraorbital structures appear grossly unremarkable . Sinuses and Mastoids: There is a mucous retention cyst or polyp in the right maxillary sinus. The vis ualized paranasal sinuses and mastoid air cells are clear. Parotid and Submandibular Glands: The parotid and submandibular glands appear unremarkable. Cervical Lymph Nodes: No significant cervical adenopathy is seen. Thyroid: No significant thyroid abnormalities are seen. Larynx and Hypopharynx: The larynx and hypopharynx appear normal. Oral Cavity, Oropharynx, and Nasopharynx: The base of the tongue, oropharyngeal region, and posterior nasopharynx appear unremarkable. Cervical Vasculature: The carotid arteries are patent. 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 No destructive osseous lesion. Minor cervical spondylosis. Visualized Upper Lungs: No suspicious lesions are identified within the visualized portions of the up per lungs. IMPRESSION: 1. No discrete mass, fluid collection, or lymphadenopathy in the neck.
--- NOTE | 2025-07-21 15:29 | DVH ---
CLINICAL INDICATION: lower back pain TECHNIQUE: CT of the lumbar spine was performed with intravenous contrast. Sagittal and coronal refor matted images are provided. All CT scans at this medical facility are performed using dose modulatio n techniques as appropriate to a performed exam including the following: Automated exposure control w as utilized; adjustment of the MA and/or KV according to patient size; and use of iterative reconstru ction technique. COMPARISON: None CT Dose: CTDI volume is 36.45 +23.05 mGy. Dose-length product is 2381.81 mGy*cm FINDINGS: There straightening of the lumbar lordosis. Alignment is maintained. There are 5 hcb-agy-mychqsa lum bar type vertebral bodies. Vertebral body heights are maintained. There is no acute fracture. Mild m ultilevel lumbar spondylosis with mild degenerative disc space narrowing at L4-L5 and L5-S1 and multi level osteophyte formation. There is congenital narrowing of the pedicles causing diffuse narrowing o f the spinal canal. At T12-L1 there is no significant stenosis. At L1-L2, there is no additional high-grade stenosis. At L2-L3, there is no additional high-grade stenosis. At L3-L4, there is a diffuse disc bulge, mild facet hypertrophy, and mild ligamentum flavum thickenin g with zcbq-qn-ekydfbsu spinal stenosis. No high-grade neural foraminal stenosis. At L4-L5, there is a diffuse disc bulge, facet hypertrophy, and mild ligamentum flavum thickening, re sulting in moderate spinal stenosis and iwkt-in-qxrebcly bilateral neural foraminal stenosis. At L5-S1, there is a disc osteophyte complex and mild facet hypertrophy resulting in moderate left an d lkre-us-uuwlcyfz right neural foraminal stenosis and no significant spinal stenosis. Small cyst in the upper pole left kidney. Hepatic steatosis is visualized. There are mildly prominent though predominantly normal-sized retroperitoneal lymph nodes. No acute abnormality in the visualiz ed abdomen. IMPRESSION: 1. No acute osseous abnormality, fluid collection, or mass. 2. 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 3. Superimposed degenerative changes of the lumbar spine particularly at L3-L4 through L5-S1. 4. This results in up to moderate spinal stenosis at L4-L5 and tvof-zs-uioykkrf bilateral neural fora rachelle stenosis at L4-L5 and on the right at L5-S1 and moderate left neural foraminal stenosis at L5-S 1. 5. Hepatic steatosis.
--- NOTE | 2025-07-21 17:00 | DVHPNRES ---
Progress Note Date Seen: Jul 21, 2025 Resident Creating Document: IRVIN SEVILLA Medical Necessity Reason Pt with a Central, PICC or Fol: No Subjective Review of Systems Patient is a 44-year-old male with past medical history of type 2 diabetes presented to [facility] ED with complaint of sore throat, fevers, chills, worsening generalized weakness, and mild dizziness since yesterday. He reports recent tonsillectomy and septoplasty last week, after which throat pain started, radiating to the ears and accompanied by headache. He also complains of lower back pain. He has been taking acetaminophen with codeine for throat pain. He denies other medications, recent sick contacts, or prior illness in the past four weeks. He denies chest pain, abdominal pain, nausea, vomiting, rash, or significant shortness of breath. This morning, patient experienced shakiness and palpitations. Per EMS, he was tachycardic (HR in 160s) and hypertensive (BP in 170s). On ED arrival, sepsis protocol was initiated including LR fluids, cefepime, dexamethasone, and fentanyl. He started taking ibuprofen 400 mg and Tylenol 650 mg for symptom relief Past medical history: Type 2 diabetes. Past surgical history: Tonsillectomy and septoplasty performed on 07/14/2025. Social & Personal history: Denies smoking, illicit drug use, rarely drinks alcohol. Lives with family. 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 Allergies: None Coded Allergies: NO KNOWN ALLERGIES (Unverified , 08/19/24) Patient seen and examined at bedside. Patient is alert and oriented to time, place person and responding to all questions. Constitutional: Yes: Fever, Chills, Weakness, Malaise; No: Sweats, Other Eyes: No Pain, No Vision change, No Conjunctivae inflammation, No Eyelid inflammation, No Other, No Redness ENT: No Ear pain, No Ear discharge, No Nose pain, No Nose discharge, No Nose congestion, No Mouth pain, No Mouth swelling, No Throat pain, No Throat swelling, No Other Cardiovascular: Palpitations, No Chest Pain, No Orthopnea, No Paroxysmal No Dyspnea, No Edema, No Lt Headedness, No Other Respiratory: No Cough, No Dry, No Shortness of breath, No SOB with exertion, No Wheezing, No Hemoptysis, No Pleuritic Pain, No Sputum, No Other Gastrointestinal: No Nausea, No Vomiting, No Abdominal Pain, No Diarrhea, No Constipation, No Melena, No Hematochezia, No Other Genitourinary: No Dysuria, No Frequency, No Incontinence, No Hematuria, No Retention, No Other Musculoskeletal: No other, No neck pain, No shoulder pain, No arm pain, No back pain, No hand pain, No leg pain, No foot pain Skin: No Rash, No Lesions, No Jaundice, No Bruising, No Other Objective vital signs Vital Sign Date Time Temp Pulse Resp B/P (MAP) Pulse Ox O2 Delivery O2 Flow Rate FiO2 07/21/25 12:37 100.3 92 16 129/76 (93) 94 100.3 07/21/25 08:00 Room Air* 0 21 Total Intake and Output 07/20/25 07/20/25 07/21/25 15:00 23:00 07:00 Intake Total 300 ml 0 ml Output Total 0 ml Balance 300 ml 0 ml medications Current Medications Medications Dose Ordered Sig/Sherine Route Start Time Stop Time Status Last Admin Dose Admin Sodium Chloride 10 ml Q8HR IV 07/20/25 22:00 07/21/25 13:42 10 ML Enoxaparin Sodium 40 mg DAILY SC 07/21/25 10:00 Morphine Sulfate 1 mg Q6HPRN PRN IV 07/20/25 16:00 07/21/25 11:28 1 MG Piperacillin Sod/ Tazobactam Sod 100 ml @ 25 mls/hr Q6HR IV 07/20/25 18:00 07/21/25 13:12 25 MLS/HR Phenol/Menthol 1 spr Q2HP PRN MT 07/20/25 16:15 Diagnostic Test (Pha) 1 strip Q6HR 07/21/25 12:00 07/21/25 12:00 1 STRIP Insulin Human Regular Q6HR SC 07/21/25 12:00 07/21/25 14:00 9 UNITS Dextrose 50 ml UD PRN IV 07/21/25 09:00 Sertraline HCl 50 mg DAILY PO 07/21/25 12:15 07/21/25 13:10 50 MG Enteral Nutritional Formula 240 ml BIDWM PO 07/21/25 18:00 Insulin Glargine 20 units HS SC 07/21/25 22:00 Lidocaine 1 patch DAILY TOP 07/21/25 14:30 07/21/25 14:44 1 PATCH Examination General: Awake, alert, in mild distress due to pain. HEENT: Head is normocephalic and atraumatic. Pupils are equal, round, and reactive to light. Extraocular muscles are intact. No nasal discharge. No facial trauma. Intraoral exam shows pharyngeal erythema, white exudate pharyngeal area. Neck: Supple with no cervical lymphadenopathy. Heart: Tachycardia, regular without murmur, rub, or gallop. Lungs: Equal breath sounds bilaterally with no wheezing, rales, or rhonchi. There is no chest wall tenderness or instability. Abdomen: No external sign of injury. Bowel sounds are present. Abdomen is soft, nontender. No rebound, no guarding, no rigidity. There are no palpable masses. There is no flank pain on exam. Extremities: Strong peripheral pulses. There is no clubbing, no cyanosis, and no edema. Skin: No rash. Neurologic: Cranial nerves II-XII intact without motor, sensory, or cerebellar deficit, no asterixis. laboratory and microbiology Laboratory Tests 07/21/25 07:00 Test 07/21/25 07:00 Range/Units Serum Glucose 265 H 74-106 mg/dL Microbiology Date/Time Source Procedure Growth Status 07/20/25 15:49 Throat Nose/Throat Culture - Preliminary Resulted 07/20/25 11:35 Blood Blood Culture - Preliminary Resulted Labs and/or images reviewed: Labs reviewed by me, Image(s) reviewed by me Problem List/Assessment/Plan Problem List/Assessment/Plan #Sepsis, rule out bacteremia, strep throat infection, viral syndrome #Pharyngitis, likely bacterial #Acute hypoxic respiratory failure -Soft Tissue Neck CT: No discrete mass, fluid collection, or lymphadenopathy in the neck. -Lumbar Spine CT: No acute osseous abnormality, fluid collection, or mass. 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 Superimposed degenerative changes of the lumbar spine particularly at L3-L4 through L5-S1. This results in up to moderate spinal stenosis at L4-L5 and [id number] bilateral neural foraminal stenosis at L4-L5 and on the right at L5-S1 and moderate left neural foraminal stenosis at L5-S1. Hepatic steatosis. -IV fluid bolus has been given. -Continue maintenance fluid NS 150 mL/hour -Order lactic acid -Pending blood culture, urine culture, rapid strep throat test, COVID, influenza test. -morphine 1 mg -Continue Zosyn IV -Phenol/Menthol as needed #Type 2 diabetes with hyperglycemia -Insulin Human Regular -Insulin Glargine -Dextrose -Ordered A1c #Hyperbilirubinemia, rule out liver disease, hepatitis, acetaminophen intoxication #Secondary coagulopathy --Liver US: Echogenic liver which can be seen with hepatic steatosis, cirrhosis. Hepatomegaly -Order hepatitis panel -Order acetaminophen level -Order urine tox and alcohol level #Sinus tachycardia due to above #QT prolongation -Avoid QT prolonging medications #Obesity -Counseled on lifestyle modification DVT prophylaxis: Lovenox 40mg Goals of care: Full code, discussed for >16 minutes on 07/21/25 Plan discussed with patient Plan discussed with Dr. Davey Plan discussed with: Patient My Orders My Orders Orders - IRVIN SEVILLA Procedure Category Date Status Time Neck With Contrast CT 07/21/25 Resulted Soft 11:32 Ls Spine W Contrast CT 07/21/25 Resulted 11:32 Date of Service: Jul 21, 2025 Billing Provider: NACHO DAVEY MD Common Visit Codes: [id number] INP/OBS CARE(HIGH) IRVIN SEVILLA Jul 21, 2025 17:00 NACHO DAVEY MD Jul 24, 2025 00:32
[2025-07-21] MEDS: Glucerna Carbsteady SHAKE Vanilla 8oz PO SCH (18:22)
[2025-07-21] MEDS: ENOXAPARIN SOD 40 MG/0.4 ML SYRINGE SC SCH (18:35)
[2025-07-21] MEDS: IBUPROFEN 400 MG TAB PO ONE (20:24)
[2025-07-21] MEDS: ACETAMINOPHEN 325 MG TAB PO PRN (20:54)
[2025-07-21] MEDS: INSULIN LANTUS (GLARGINE) 1 /0.01ml (100units/ml) SC SCH (22:41)
[2025-07-22] VITALS (7 sets, daily range): BP systolic 105–147; BP diastolic 65–82; PULSE 75–104; RESP 18–20; TEMP 97.3–102.5; O2SAT 94–99
[2025-07-22 06:57] LABS: Potassium 3.8 mmol/L (3.5-5.1)
[2025-07-22 06:58] LABS: Anion Gap 11 (5-15); Carbon Dioxide 23 mmol/L (20-31)
[2025-07-22 06:59] LABS: Calcium 8.1 mg/dL (8.7-10.4); Chloride 95 mmol/L (98-107); Sodium 129 mmol/L (136-145)
[2025-07-22 07:04] LABS: BUN/Creatinine Ratio 10.1 (10.0-20.0)
[2025-07-22 07:11] LABS: Blood Urea Nitrogen 7 mg/dL (9-23); Glucose 231 mg/dL (74-106)
[2025-07-22 07:23] LABS: Nucleated Red Blood Cells % 0.0 %
[2025-07-22 07:27] LABS: Hematocrit 37.5 % (41.0-53.0); Hemoglobin 13.8 g/dL (13.5-17.5); Mean Corpuscular Hemoglobin 33.8 pg (28.0-32.0); Mean Corpuscular Volume 92.2 fL (80.0-100.0)
[2025-07-22] MEDS: SODIUM CHLORIDE 0.9% 1,000 ML IV SCH (08:15)
[2025-07-22 09:02] LABS: Albumin 3.5 g/dL (3.2-4.8); Alkaline Phosphatase 93.0 U/L (46-116); Total Protein 5.8 g/dL (5.7-8.2)
[2025-07-22 09:11] LABS: Alanine Aminotransferase 40.0 U/L (7-40); Bilirubin, Direct 0.8 mg/dL (<0.3); Bilirubin, Total 2.4 mg/dL (0.2-1.0)
[2025-07-22] MEDS ORDERED: LIDOCAINE 5% TOPICAL PATCH TOP SCH (10:00)
[2025-07-22 10:51] LABS: Wright Stain Ready for Review
--- NOTE | 2025-07-22 15:31 | DVHPNRES ---
Progress Note Date Seen: Jul 22, 2025 Resident Creating Document: IRVIN SEVILLA Medical Necessity Reason Pt with a Central, PICC or Fol: No Subjective Review of Systems Patient is a 44-year-old male with past medical history of type 2 diabetes presented to [facility] ED with complaint of sore throat, fevers, chills, worsening generalized weakness, and mild dizziness since yesterday. He reports recent tonsillectomy and septoplasty last week, after which throat pain started, radiating to the ears and accompanied by headache. He also complains of lower back pain. He has been taking acetaminophen with codeine for throat pain. He denies other medications, recent sick contacts, or prior illness in the past four weeks. He denies chest pain, abdominal pain, nausea, vomiting, rash, or significant shortness of breath. This morning, patient experienced shakiness and palpitations. Per EMS, he was tachycardic (HR in 160s) and hypertensive (BP in 170s). On ED arrival, sepsis protocol was initiated including LR fluids, cefepime, dexamethasone, and fentanyl. He started taking ibuprofen 400 mg and Tylenol 650 mg for symptom relief. Patient was seen at bedside and reports significant relief of pain today; he denies any neck pain. Objective vital signs Vital Sign Date Time Temp Pulse Resp B/P (MAP) Pulse Ox O2 Delivery O2 Flow Rate FiO2 07/22/25 13:02 99.2 87 20 113/71 (85) 96 99.2 07/22/25 08:00 Room Air* 0 21 Total Intake and Output 07/21/25 07/21/25 07/22/25 15:00 23:00 07:00 Intake Total 1100 ml 250 ml 600 ml Balance 1100 ml 250 ml 600 ml medications Current Medications Medications Dose Ordered Sig/Sherine Route Start Time Stop Time Status Last Admin Dose Admin Sodium Chloride 10 ml Q8HR IV 07/20/25 22:00 07/22/25 14:00 10 ML Enoxaparin Sodium 40 mg DAILY SC 07/21/25 10:00 07/21/25 18:35 40 MG Morphine Sulfate 1 mg Q6HPRN PRN IV 07/20/25 16:00 07/21/25 11:28 1 MG Piperacillin Sod/ Tazobactam Sod 100 ml @ 25 mls/hr Q6HR IV 07/20/25 18:00 07/22/25 11:56 25 MLS/HR Phenol/Menthol 1 spr Q2HP PRN MT 07/20/25 16:15 Diagnostic Test (Pha) 1 strip Q6HR 07/21/25 12:00 07/22/25 11:56 1 STRIP Insulin Human Regular Q6HR SC 07/21/25 12:00 07/22/25 12:02 247 UNITS Dextrose 50 ml UD PRN IV 07/21/25 09:00 Sertraline HCl 50 mg DAILY PO 07/21/25 12:15 07/22/25 10:00 50 MG Enteral Nutritional Formula 240 ml BIDWM PO 07/21/25 18:00 07/22/25 08:00 240 ML Insulin Glargine 20 units HS SC 07/21/25 22:00 07/21/25 22:41 20 UNITS Lidocaine 1 patch DAILY TOP 07/21/25 14:30 07/22/25 10:00 1 PATCH Ketorolac Tromethamine 15 mg Q6HPRN PRN IV 07/21/25 20:15 07/26/25 20:14 Sodium Chloride 1,000 ml @ 150 mls/hr Q6H40M IV 07/22/25 08:15 07/22/25 08:15 150 MLS/HR Acetaminophen 325 mg Q6HP PRN PO 07/22/25 10:15 Examination General: Awake, alert, in mild distress due to pain. HEENT: Head is normocephalic and atraumatic. Pupils are equal, round, and reactive to light. Extraocular muscles are intact. No nasal discharge. No facial trauma. Intraoral exam shows pharyngeal erythema, white exudate pharyngeal area. Neck: Supple with no cervical lymphadenopathy. Heart: Tachycardia, regular without murmur, rub, or gallop. Lungs: Equal breath sounds bilaterally with no wheezing, rales, or rhonchi. There is no chest wall tenderness or instability. Abdomen: No external sign of injury. Bowel sounds are present. Abdomen is soft, nontender. No rebound, no guarding, no rigidity. There are no palpable masses. There is no flank pain on exam. Extremities: Strong peripheral pulses. There is no clubbing, no cyanosis, and no edema. Skin: No rash. Neurologic: Cranial nerves II-XII intact without motor, sensory, or cerebellar deficit, no asterixis. laboratory and microbiology Laboratory Tests 07/22/25 04:01 Test 07/22/25 04:01 Range/Units Serum Glucose 231 H 74-106 mg/dL Microbiology Date/Time Source Procedure Growth Status 07/20/25 15:49 Throat Nose/Throat Culture - Preliminary Resulted 07/20/25 11:40 Voided Urine Urine Culture - Preliminary Resulted 07/20/25 11:35 Blood Blood Culture - Preliminary Resulted Labs and/or images reviewed: Labs reviewed by me, Image(s) reviewed by me Problem List/Assessment/Plan Problem List/Assessment/Plan #Sepsis, rule out bacteremia, strep throat infection, viral syndrome #Pharyngitis, likely bacterial #Acute hypoxic respiratory failure -Soft Tissue Neck CT: No discrete mass, fluid collection, or lymphadenopathy in the neck. -Lumbar Spine CT: No acute osseous abnormality, fluid collection, or mass. 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 Superimposed degenerative changes of the lumbar spine particularly at L3-L4 through L5-S1. This results in up to moderate spinal stenosis at L4-L5 and [id number] bilateral neural foraminal stenosis at L4-L5 and on the right at L5-S1 and moderate left neural foraminal stenosis at L5-S1. Hepatic steatosis. -IV fluid bolus has been given. -Continue maintenance fluid NS 150 mL/hour -Order lactic acid -Pending blood culture, urine culture, rapid strep throat test, COVID, influenza test. -morphine 1 mg -Continue Zosyn IV -Phenol/Menthol as needed #Type 2 diabetes with hyperglycemia -Insulin Human Regular -Insulin Glargine -Dextrose -Ordered A1c #Hyperbilirubinemia, rule out liver disease, hepatitis, acetaminophen intoxication #Secondary coagulopathy --Liver US: Echogenic liver which can be seen with hepatic steatosis, cirrhosis. Hepatomegaly -Order hepatitis panel -Order acetaminophen level -Order urine tox and alcohol level #Sinus tachycardia due to above #QT prolongation -Avoid QT prolonging medications #Obesity -Counseled on lifestyle modification DVT prophylaxis: Lovenox 40mg Goals of care: Full code, discussed for >16 minutes on 07/22/25 Plan discussed with patient Plan discussed with Dr. Davey Plan discussed with: Patient Date of Service: Jul 22, 2025 Billing Provider: NACHO DAVEY MD Common Visit Codes: [id number] INP/OBS CARE(HIGH) YOU,YOUNGSANG RESIDENT Jul 22, 2025 15:31 NACHO DAVEY MD Jul 24, 2025 00:32
[2025-07-22] MEDS: ACCU-CHEK COMFORT CURVE STRIP VI SCH (18:21)
[2025-07-22] MEDS: InsuLIN REG 1unit/0.01ml Soln (100units/ml) SC SCH (18:25)
[2025-07-22] MEDS: LOPERAMIDE HCL 2 MG CAP/TAB PO ONE (20:44)
[2025-07-22] MEDS: ACETAMINOPHEN 325 MG TAB PO PRN (20:47)
[2025-07-22] MEDS: ONDANSETRON HCL 4 MG/2 ML VIAL IV ONE (20:47)
[2025-07-22] MEDS: KETOROLAC TROMETH 30 MG/ML 1ML VIAL IV PRN (21:30)
[2025-07-22] MEDS: INSULIN LANTUS (GLARGINE) 1 /0.01ml (100units/ml) SC SCH (21:38)
[2025-07-23 01:00] VITALS: BP 121/68; PULSE 66; RESP 18; TEMP 98.3; O2SAT 97
[2025-07-23 04:57] VITALS: BP 109/67; PULSE 75; RESP 18; TEMP 98; O2SAT 98
[2025-07-23 07:13] LABS: Chloride 99 mmol/L (98-107); Potassium 4.3 mmol/L (3.5-5.1)
[2025-07-23 07:14] LABS: Anion Gap 7 (5-15); Carbon Dioxide 30 mmol/L (20-31)
[2025-07-23 07:19] LABS: BUN/Creatinine Ratio 11.4 (10.0-20.0); Blood Urea Nitrogen 9 mg/dL (9-23)
[2025-07-23 07:26] LABS: Calcium 8.2 mg/dL (8.7-10.4); Glucose 196 mg/dL (74-106); Sodium 136 mmol/L (136-145)
[2025-07-23 07:46] LABS: Hematocrit 36.5 % (41.0-53.0); Hemoglobin 13.0 g/dL (13.5-17.5); Mean Corpuscular Hemoglobin 32.6 pg (28.0-32.0); Mean Corpuscular Volume 91.6 fL (80.0-100.0); Nucleated Red Blood Cells % 0.1 %
[2025-07-23 08:00] VITALS: PULSE 78
[2025-07-23 09:00] VITALS: BP 118/65; PULSE 87; RESP 20; TEMP 98.8; O2SAT 96
[2025-07-23 09:14] LABS: Alanine Aminotransferase 34.0 U/L (7-40); Albumin 3.4 g/dL (3.2-4.8); Alkaline Phosphatase 86.0 U/L (46-116); Total Protein 6.0 g/dL (5.7-8.2)
[2025-07-23 09:22] LABS: Bilirubin, Direct 0.7 mg/dL (<0.3); Bilirubin, Total 1.7 mg/dL (0.2-1.0)
[2025-07-23 13:00] VITALS: BP 118/81; PULSE 78; RESP 20; TEMP 98.5; O2SAT 96
[2025-07-23] MEDS ORDERED: AUG875T PO (13:27)
[2025-07-23] MEDS ORDERED: DOXY1CAP57 PO (13:27)
[2025-07-23] MEDS ORDERED: METF-370 PO (13:27)
--- NOTE | 2025-07-23 15:27 | DVHPNRES ---
Progress Note Date Seen: Jul 23, 2025 Resident Creating Document: IRVIN SEVILLA Medical Necessity Reason Pt with a Central, PICC or Fol: No Subjective Review of Systems Patient is a 44-year-old male with past medical history of type 2 diabetes presented to [facility] ED with complaint of sore throat, fevers, chills, worsening generalized weakness, and mild dizziness since yesterday. He reports recent tonsillectomy and septoplasty last week, after which throat pain started, radiating to the ears and accompanied by headache. He also complains of lower back pain. He has been taking acetaminophen with codeine for throat pain. He denies other medications, recent sick contacts, or prior illness in the past four weeks. He denies chest pain, abdominal pain, nausea, vomiting, rash, or significant shortness of breath. This morning, patient experienced shakiness and palpitations. Per EMS, he was tachycardic (HR in 160s) and hypertensive (BP in 170s). On ED arrival, sepsis protocol was initiated including LR fluids, cefepime, dexamethasone, and fentanyl. He started taking ibuprofen 400 mg and Tylenol 650 mg for symptom relief. 07/22: Patient was seen at bedside and reports significant relief of pain today; he denies any neck pain. 07/23: On evaluation today, he states he is well, pain is manageable. His vitals have remained stable. Objective vital signs Vital Sign Date Time Temp Pulse Resp B/P (MAP) Pulse Ox O2 Delivery O2 Flow Rate FiO2 07/23/25 13:00 98.5 78 20 118/81 (93) 96 98.5 07/22/25 20:00 Room Air* 0 21 Total Intake and Output 07/22/25 07/22/25 07/23/25 15:00 23:00 07:00 Intake Total 200 ml 1700 ml 750 ml Balance 200 ml 1700 ml 750 ml medications Current Medications Medications Dose Ordered Sig/Sherine Route Start Time Stop Time Status Last Admin Dose Admin Sodium Chloride 10 ml Q8HR IV 07/20/25 22:00 07/23/25 06:29 10 ML Morphine Sulfate 1 mg Q6HPRN PRN IV 07/20/25 16:00 07/21/25 11:28 1 MG Piperacillin Sod/ Tazobactam Sod 100 ml @ 25 mls/hr Q6HR IV 07/20/25 18:00 07/23/25 06:39 25 MLS/HR Phenol/Menthol 1 spr Q2HP PRN MT 07/20/25 16:15 Dextrose 50 ml UD PRN IV 07/21/25 09:00 Sertraline HCl 50 mg DAILY PO 07/21/25 12:15 07/23/25 10:57 50 MG Enteral Nutritional Formula 240 ml BIDWM PO 07/21/25 18:00 07/23/25 08:00 240 ML Lidocaine 1 patch DAILY TOP 07/21/25 14:30 07/23/25 10:58 1 PATCH Ketorolac Tromethamine 15 mg Q6HPRN PRN IV 07/21/25 20:15 07/26/25 20:14 07/23/25 10:57 15 MG Sodium Chloride 1,000 ml @ 150 mls/hr Q6H40M IV 07/22/25 08:15 07/22/25 08:15 150 MLS/HR Acetaminophen 325 mg Q6HP PRN PO 07/22/25 10:15 07/22/25 20:47 325 MG Diagnostic Test (Pha) 1 strip Q4HR 07/22/25 18:00 07/23/25 10:58 1 STRIP Insulin Human Regular Q4HR SC 07/22/25 18:00 07/23/25 13:06 6 UNITS Insulin Glargine 35 units HS SC 07/23/25 22:00 Examination General: Awake, alert, in mild distress due to pain. HEENT: Head is normocephalic and atraumatic. Pupils are equal, round, and reactive to light. Extraocular muscles are intact. No nasal discharge. No facial trauma. Intraoral exam shows pharyngeal erythema, white exudate pharyngeal area. Neck: Supple with no cervical lymphadenopathy. Heart: Tachycardia, regular without murmur, rub, or gallop. Lungs: Equal breath sounds bilaterally with no wheezing, rales, or rhonchi. There is no chest wall tenderness or instability. Abdomen: No external sign of injury. Bowel sounds are present. Abdomen is soft, nontender. No rebound, no guarding, no rigidity. There are no palpable masses. There is no flank pain on exam. Extremities: Strong peripheral pulses. There is no clubbing, no cyanosis, and no edema. Skin: No rash. Neurologic: Cranial nerves II-XII intact without motor, sensory, or cerebellar deficit, no asterixis. laboratory and microbiology Laboratory Tests 07/23/25 06:31 Test 07/23/25 06:31 Range/Units Serum Glucose 196 H 74-106 mg/dL Microbiology Date/Time Source Procedure Growth Status 07/22/25 10:20 Blood Blood Culture - Preliminary NO GROWTH AFTER 24 HOURS OF INCUBATION. Resulted 07/20/25 15:49 Throat Nose/Throat Culture - Final Complete 07/20/25 11:40 Voided Urine Urine Culture - Final Complete Labs and/or images reviewed: Labs reviewed by me, Image(s) reviewed by me Problem List/Assessment/Plan Problem List/Assessment/Plan #Sepsis, rule out bacteremia, strep throat infection, viral syndrome #Pharyngitis, likely bacterial #Acute hypoxic respiratory failure -Soft Tissue Neck CT: No discrete mass, fluid collection, or lymphadenopathy in the neck. -Lumbar Spine CT: No acute osseous abnormality, fluid collection, or mass. 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 Superimposed degenerative changes of the lumbar spine particularly at L3-L4 through L5-S1. This results in up to moderate spinal stenosis at L4-L5 and [id number] bilateral neural foraminal stenosis at L4-L5 and on the right at L5-S1 and moderate left neural foraminal stenosis at L5-S1. Hepatic steatosis. -IV fluid bolus has been given. -Continue maintenance fluid NS 150 mL/hour -Order lactic acid -Pending blood culture, urine culture, rapid strep throat test, COVID, influenza test. -morphine 1 mg -Continue Zosyn IV -Phenol/Menthol as needed #Type 2 diabetes with hyperglycemia -Insulin Human Regular -Insulin Glargine -Dextrose -Ordered A1c #Hyperbilirubinemia, rule out liver disease, hepatitis, acetaminophen intoxication #Secondary coagulopathy --Liver US: Echogenic liver which can be seen with hepatic steatosis, cirrhosis. Hepatomegaly -Order hepatitis panel -Order acetaminophen level -Order urine tox and alcohol level #Sinus tachycardia due to above #QT prolongation -Avoid QT prolonging medications #Obesity -Counseled on lifestyle modification DVT prophylaxis: Lovenox 40mg Goals of care: Full code, discussed for >16 minutes on 07/23/25 Plan discussed with patient Plan discussed with Dr. Davey Plan discussed with: Patient Dietary Evaluation Review Comments: CCHO-60 Texture as tolerated diet, Expected Outcomes/Goals: Improved PO intake, Controlled T2DM, Gradual wt loss Date of Service: Jul 23, 2025 Billing Provider: FRANK LUKE MD Common Visit Codes: [id number] INP/OBS CARE(HIGH) Secondary Visit Codes: [id number] CARE PLAN 30 MINUTES IRVIN SEVILLA RESIDENT Jul 23, 2025 15:26
--- NOTE | 2025-07-23 15:48 | DVHDSRES ---
Discharge Summary Date of Admission Resident Creating Document: IRVIN SEVILLA RESIDENT Jul 20, 2025 at 15:49 Date of Discharge: Jul 23, 2025 Admitting Diagnosis Sore throat with fever status post tonsillectomy Labs/Diagnostic Data: Laboratory Results Test 07/23/25 11:07 07/23/25 06:31 07/22/25 12:00 07/22/25 04:51 POC Glucose 237 mg/dl (70-106) White Blood Count 6.3 10^3/uL (4.4-10.8) Red Blood Count 3.99 10^6/uL (4.5-5.90) Hemoglobin 13.0 g/dL (13.5-17.5) Hematocrit 36.5 % (41.0-53.0) Mean Corpuscular Volume 91.6 fL (80.0-100.0) Mean Corpuscular Hemoglobin 32.6 pg (28.0-32.0) Mean Corpuscular Hemoglobin Concent 35.6 g/dL (32.0-36.0) Red Cell Distribution Width 12.3 % (11.8-14.3) Platelet Count 109 10^3/uL (140-450) Mean Platelet Volume 8.3 fL (6.9-10.8) Neutrophils (%) (Auto) 83.0 % (37.0-80.0) Lymphocytes (%) (Auto) 8.4 % (10.0-50.0) Monocytes (%) (Auto) 8.0 % (0.0-12.0) Eosinophils (%) (Auto) 0.3 % (0.0-7.0) Basophils (%) (Auto) 0.3 % (0.0-2.0) Neutrophils # (Auto) 5.2 10 ^3/uL (1.6-8.6) Lymphocytes # (Auto) 0.5 10 ^3/uL (0.4-5.4) Monocytes # (Auto) 0.5 10 ^3/uL (0-1.3) Eosinophils # (Auto) 0 10 ^3/uL (0-0.8) Basophils # (Auto) 0 10 ^3/uL (0-0.2) Nucleated Red Blood Cells 0.1 % Sodium Level 136 mmol/L (136-145) Potassium Level 4.3 mmol/L (3.5-5.1) Chloride Level 99 mmol/L (98-107) Carbon Dioxide Level 30 mmol/L (20-31) Anion Gap 7 (5-15) Blood Urea Nitrogen 9 mg/dL (9-23) Creatinine 0.79 mg/dL (0.700-1.30) Glomerular Filtration Rate Calc 112 mL/min (>90) BUN/Creatinine Ratio 11.4 (10.0-20.0) Serum Glucose 196 mg/dL (74-106) Calcium Level 8.2 mg/dL (8.7-10.4) Total Bilirubin 1.7 mg/dL (0.2-1.0) Direct Bilirubin 0.7 mg/dL (<0.3) Aspartate Amino Transferase (AST) 26 U/L (13-40) Alanine Aminotransferase (ALT) 34 U/L (7-40) Alkaline Phosphatase 86 U/L (46-116) Total Protein 6.0 g/dL (5.7-8.2) Albumin 3.4 g/dL (3.2-4.8) Haptoglobin 241 mg/dL (23-355) Reticulocyte Count (auto) 2.00 % (0.5-1.5) Lactate Dehydrogenase 323 U/L (120-246) Test 07/20/25 16:15 07/20/25 15:49 07/20/25 11:40 07/20/25 11:35 Lactic Acid Level 1.1 mmol/L (0.4-2.0) Plasma/Serum Blood Alcohol < 3.0 mg/dL (<10) Influenza Type A Antigen Negative (Negative) Influenza Type B Antigen Negative (Negative) Group A Streptococcus Rapid Negative Urine Color Yellow (Yellow) Urine Clarity Clear (Clear) Urine pH 6.0 (5.0-9.0) Urine Specific [place] 1.037 (1.001-1.035) Urine Protein 1+ (Negative) Urine Ketones Trace (Negative) Urine Blood Negative /uL (Negative) Urine Nitrite Negative (Negative) Urine Bilirubin Negative (Negative) Urine Urobilinogen Over mg/dL (Negative) Urine Leukocyte Esterase Negative /uL (Negative) Urine RBC 8 /hpf (0 - 3) Urine Microscopic WBC 1 /HPF (0-3) Urine Squamous Epithelial Cells Few /hpf (<5) Urine Bacteria None seen /hpf (None Seen) Urine Mucus Few (None Seen) Urine Glucose 3+ mg/dL (Normal) Urine Opiates Screen Pos (NEGATIVE) Urine Fentanyl Screen Neg (NEGATIVE) Urine Barbiturates Screen Neg (NEGATIVE) Urine Phencyclidine Screen Neg (NEGATIVE) Urine Amphetamines Screen Neg (NEGATIVE) Urine Benzodiazepines Screen Neg (NEGATIVE) Urine Cocaine Screen Neg (NEGATIVE) Urine Cannabinoids Screen Neg (NEGATIVE) Prothrombin Time 12.7 sec (9.3-11.8) Prothrombin Time INR 1.22 (0.9-1.15) Activated Partial Thromboplast Time 28.1 SEC (24.5-34.5) Hemoglobin A1c 6.0 % A1C (<5.7) Magnesium Level 1.7 mg/dL (1.6-2.6) Troponin I High Sensitivity 3 ng/L (</=54) Acetaminophen Level 3.0 UG/ML (10.0-20.0) Test 07/20/25 00:00 SARS-CoV-2 Antigen (Rapid) Negative (NEGATIVE) Other Laboratory Tests 07/23/25 06:31 Brief Hx & Hospital Course: The patient is a 44-year-old male with a history of type 2 diabetes who presented to [facility] Emergency Department with complaints of sore throat, fever, chills, generalized weakness, mild dizziness, and lower back pain. Symptoms began the day prior to admission and followed a recent tonsillectomy and septoplasty performed last week. He reported throat pain radiating to the ears, accompanied by headache, and had been taking acetaminophen with codeine for symptom relief. He denied chest pain, abdominal pain, nausea, vomiting, rash, or significant shortness of breath. On the morning of admission, the patient experienced shakiness and palpitations. EMS noted tachycardia (HR 160s) and hypertension (BP 170s). Upon arrival to the ED, sepsis protocol was initiated, including IV fluids (LR), cefepime, dexamethasone, and fentanyl. He was started on ibuprofen 400 mg and acetaminophen 650 mg for symptom relief. Initial workup included: Soft tissue neck CT: No discrete mass, fluid collection, or lymphadenopathy. 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 Liver ultrasound: Echogenic liver with hepatomegaly, suggestive of hepatic steatosis or cirrhosis. Additional concerns included hyperglycemia, hyperbilirubinemia, and possible liver dysfunction. Workup included acetaminophen level, hepatitis panel, urine toxicology, and alcohol level. Blood and urine cultures, rapid strep, COVID, and influenza tests were pending. The patient was started on IV Zosyn, morphine 1 mg, and Phenol/Menthol as needed. Maintenance fluids were continued at NS 150 mL/hr. On evaluation today, he states he is well, pain is manageable. His vitals have remained stable for discharge home, follow up visit in discharge clinic. All medications and recommendations were thoroughly explained and the patient states he understands and agrees. Detailed discussion held with patient at bedside were all questions were answered and concerns were addressed. Physical examination on day of discharge: General: Awake, alert, in mild distress due to pain. HEENT: Head is normocephalic and atraumatic. Pupils are equal, round, and reactive to light. Extraocular muscles are intact. No nasal discharge. No facial trauma. Intraoral exam shows pharyngeal erythema, decreasing white exudate in the pharyngeal area. Neck: Supple with no cervical lymphadenopathy. Heart: RRR, normal S1 and S2, no murmurs Lungs: Equal breath sounds bilaterally with no wheezing, rales, or rhonchi. There is no chest wall tenderness or instability. Abdomen: No external sign of injury. Bowel sounds are present. Abdomen is soft, nontender. No rebound, no guarding, no rigidity. There are no palpable masses. There is no flank pain on exam. Extremities: Strong peripheral pulses. There is no clubbing, no cyanosis, and no edema. Skin: No rash. Neurologic: Cranial nerves II-XII intact without motor, sensory, or cerebellar deficit, no asterixis. Goals of care discussed with the patient for 20 minutes; full code Discussed with Dr. Luke Operations or Procedures PATIENT: RAQUEL PARK ACCT: [id number] UNIT: [id number] : 1980 LOC: [facility] ROOM / BED: [facility] / A AGE / SEX: 44 / M ADM STATUS: ADM IN SERVICE 1132 ORDERING PHYSICIAN: IRVIN SEVILLA PROCEDURE(s): NK2CT - NECK WITH CONTRAST SOFT REASON: possible abcess ORDER NUMBER(s): [id number], ACCESSION NUMBER(s): [id number] CT Neck with Contrast CLINICAL HISTORY: possible abscess, neck pain, swelling TECHNIQUE: CT of the neck was performed with intravenous contrast. This exam was performed according to our departmental dose optimization program. Up-to-date CT equipment and radiation dose reduction techniques are utilized as appropriate. WID: COMPARISON: None Neck findings: Brain and Orbits: The visualized intracranial and intraorbital structures appear grossly unremarkable. Sinuses and Mastoids: There is a mucous retention cyst or polyp in the right maxillary sinus. The visualized paranasal sinuses and mastoid air cells are clear. Parotid and Submandibular Glands: The parotid and submandibular glands appear unremarkable. Cervical Lymph Nodes: No significant cervical adenopathy is seen. Thyroid: No significant thyroid abnormalities are seen. Larynx and Hypopharynx: The larynx and hypopharynx appear normal. Oral Cavity, Oropharynx, and Nasopharynx: The base of the tongue, oropharyngeal region, and posterior nasopharynx appear unremarkable. Cervical Vasculature: The carotid arteries are patent. 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 No destructive osseous lesion. Minor cervical spondylosis. Visualized Upper Lungs: No suspicious lesions are identified within the visualized portions of the upper lungs. IMPRESSION: 1. No discrete mass, fluid collection, or lymphadenopathy in the neck. ------ PATIENT: RAQUEL PARK ACCT: [id number] UNIT: [id number] : 1980 LOC: [facility] ROOM / BED: [facility] A AGE / SEX: 44 / M ADM STATUS: ADM IN SERVICE 1132 ORDERING PHYSICIAN: IRVIN SEVILLA PROCEDURE(s): LS1CT - LS SPINE W CONTRAST REASON: lower back pain ORDER NUMBER(s): [id number], ACCESSION NUMBER(s): [id number] CLINICAL INDICATION: lower back pain TECHNIQUE: CT of the lumbar spine was performed with intravenous contrast. Sagittal and coronal reformatted images are provided. All CT scans at this medical facility are performed using dose modulation techniques as appropriate to a performed exam including the following: Automated exposure control was utilized; adjustment of the MA and/or KV according to patient size; and use of iterative reconstruction technique. COMPARISON: None CT Dose: CTDI volume is 36.45 +23.05 mGy. Dose-length product is 2381.81 mGy*cm FINDINGS: There straightening of the lumbar lordosis. Alignment is maintained. There are 5 sce-wub-yyeunpw lumbar type vertebral bodies. Vertebral body heights are maintained. There is no acute fracture. Mild multilevel lumbar spondylosis with mild degenerative disc space narrowing at L4-L5 and L5-S1 and multilevel osteophyte formation. There is congenital narrowing of the pedicles causing diffuse narrowing of the spinal canal. At T12-L1 there is no significant stenosis. At L1-L2, there is no additional high-grade stenosis. At L2-L3, there is no additional high-grade stenosis. At L3-L4, there is a diffuse disc bulge, mild facet hypertrophy, and mild ligamentum flavum thickening with uroq-nm-dhsaqpec spinal stenosis. No high- grade neural foraminal stenosis. At L4-L5, there is a diffuse disc bulge, facet hypertrophy, and mild ligamentum flavum thickening, resulting in moderate spinal stenosis and ymjj-gg-ojunracy bilateral neural foraminal stenosis. At L5-S1, there is a disc osteophyte complex and mild facet hypertrophy resulting in moderate left and zkqv-us-tpmdpkys right neural foraminal stenosis and no significant spinal stenosis. Small cyst in the upper pole left kidney. Hepatic steatosis is visualized. There are mildly prominent though predominantly normal-sized retroperitoneal lymph nodes. No acute abnormality in the visualized abdomen. IMPRESSION: 1. No acute osseous abnormality, fluid collection, or mass. 2. 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 3. Superimposed degenerative changes of the lumbar spine particularly at L3-L4 through L5-S1. 4. This results in up to moderate spinal stenosis at L4-L5 and uqnr-pi-tcruwagp bilateral neural foraminal stenosis at L4-L5 and on the right at L5-S1 and moderate left neural foraminal stenosis at L5-S1. 5. Hepatic steatosis. - ----- PATIENT: RAQUEL PARK ACCT: [id number] UNIT: [id number] : 1980 LOC: [facility] ROOM / BED: [address] [place] [address] / AGE / SEX: 44 / M ADM STATUS: ADM IN SERVICE 1549 ORDERING PHYSICIAN: NICOLE ANTONY RESIDENT PROCEDURE(s): LIVUS - LIVER REASON: hyperbilirubinemia ORDER NUMBER(s): [id number], ACCESSION NUMBER(s): [id number] Technique: Real-time ultrasound imaging of the abdomen was performed with grayscale and color Doppler. Indication: hyperbilirubinemia Comparison: None Findings: Liver measures 21.4 cm. It is increased in echogenicity and echotexture without focal mass. Portal vein is normal in caliber and demonstrates normal hepatopetal flow. Gallbladder demonstrates no evidence for cholelithiasis. There is no pericholecystic fluid. The wall thickness is normal. The common bile duct measures 4 mm. No intrahepatic biliary ductal dilatation. The right kidney measures 11.4 cm. There is no hydronephrosis or sonographic evidence of nephrolithiasis. The visualized portion of the pancreas is unremarkable. Spleen measures cm. The visualized portion of the IVC is unremarkable. Impression: Echogenic liver which can be seen with hepatic steatosis, cirrhosis. Hepatomegaly ------ PATIENT: RAQUEL PARK ACCT: [id number] UNIT: [id number] : 1980 LOC: ER ROOM / BED: / AGE / SEX: 44 / M ADM STATUS: REG ER SERVICE 1121 ORDERING PHYSICIAN: ROXANA REILLY DO PROCEDURE(s): CXRP - CHEST PORTABLE REASON: tachy fever ORDER NUMBER(s): [id number], ACCESSION NUMBER(s): [id number] EXAM: XY CHEST PORTABLE Indication: tachy fever Technique: Single frontal view of the chest was obtained Comparison: None FINDINGS: Lines and Tubes: None Lungs: No focal consolidation. Pleura: No effusion. No pneumothorax. Cardiomediastinal contours: Unremarkable Bones: No acute osseous abnormality. IMPRESSION: No acute cardiopulmonary disease. PATIENT: RAQUEL PARK ACCT: [id number] : 1980 [facility]GE / SEX: 44 / M ADM STATUS: ADM IN SERVICE UNIT: [id number] ORDERING PHYSICIAN: ROXANA REILLY DO PROCEDURE(s): EKG - ELECTROCARDIGRAM ORDER NUMBER(s): [id number], ACCESSION NUMBER(s): [id number] [facility] Test Date: 2025-07-20 Test Time: 11:11:31 Pat Name: RAQUEL PARK Department: Room: [address] [place] [address] Gender: M Processing Operator: LUCIANA : 1980 Requested By: ROXANA REILLY Order Number: [id number] Reading MD: Angella Fishman Measurements Intervals [place] Rate: 159 P: 40 CO: 117 QRS: 261 QRSD: 93 T: 55 QT: 301 QTc: 490 Interpretive Statements Sinus tachycardia Left anterior fascicular block Abnormal R-wave progression, late transition Borderline prolonged QT interval Electronically Signed On 07-20-2025 16:40:04 PDT by Angella Fishman Please click the below link to view image of tracing. DICTATED BY:ANGELLA FISHMAN Sr., MD DICTATED DATE/TIME:07/20/25 1111 - --- [facility] [address] [address] Danni Serrano M.D., Laboratory Assembler Ping Pong Table - PATIENT: RAQUEL PARK ACCT: [id number] LOC: [facility] U: [id number] AGE/SX: 44/M ROOM: [facility] RE07/20/[address]: IRVIN SEVILLA RESIDENT : 1980 BED: A DIS: STATUS: ADM IN TLOC: - SPEC #: [id number] ELO: 07/22/25-1019 STATUS: RES REQ #: [id number] RECD: 07/22/25-[address]: NICOLE ANTONY RESIDENT SOURCE: BLOOD ENTR: 07/22/25-812 [facility] [address]: NACHO BURNS MD [facility]: IRVIN SEVILLA ORDERED: BCULT - Procedure Result - Blood Culture Preliminary NO GROWTH AFTER 24 HOURS OF INCUBATION. NO GROWTH AFTER 24 HOURS OF INCUBATION. [facility] [address] [address] Danni Serrano M.D., Laboratory Assembler [employer] Table - PATIENT: RAQUEL PARK ACCT: [id number] LOC: [facility] U: [id number] AGE/SX: 44/M ROOM: [facility] RE07/20/[address]: IRVIN SEVILLA : 1980 BED: A DIS: STATUS: ADM IN TLOC: - SPEC #: [id number] ELO: 07/22/25-1009 STATUS: RES REQ #: [id number] RECD: 07/22/[address] [facility] [address]: NICOLE ANTONY SOURCE: BLOOD ENTR: 07/22/[address]: NACHO BURNS MD [facility]: IRVIN SEVILLA ORDERED: MIGUEL ANGEL COMMENTS: Procedure Result - Blood Culture Preliminary NO GROWTH AFTER 24 HOURS OF INCUBATION. NO GROWTH AFTER 24 HOURS OF INCUBATION. [facility] [address] [facility], [place], [place] [address] Danni Serrano M.D., Laboratory Assembler [employer] Table - PATIENT: RAQUEL PARK ACCT: [id number] LOC: [facility] U: [id number] AGE/SX: 44/M ROOM: [facility] RE07/20/[address]: IRVIN SEVILLA RESIDENT : 1980 BED: A DIS: STATUS: ADM IN TLOC: - SPEC #: [id number] ELO: 07/20/25 STATUS: COMP REQ #: [id number] RECD: 07/20/[address]: NICOLE ANTONY RESIDENT SOURCE: THROAT ENTR: 07/20/25-[address]: ROXANA REILLY DO SPDC: ORDERED: STREP - Procedure Result - Nose Throat Culture Final Report Rare growth: Beta-Hemolytic Group C Streptococcus NOTE: Penicillin and ampicillin are drugs of choice for treatment of Beta hemolytic streptococcus infections. Susceptibilities are not routinely done. [facility] [address] [address] Danni Serrano M.D., Laboratory Assembler [employer] Table - PATIENT: RAQUEL PARK ACCT: [id number] LOC: [facility] U: [id number] AGE/SX: 44/M ROOM: [facility] RE07/20/[address]: IRVIN SEVILLA RESIDENT : 1980 BED: A DIS: STATUS: ADM IN TLOC: - SPEC #: [id number] ELO: 07/20/25-1140 STATUS: COMP REQ #: [id number] RECD: 07/20/25-[address] [facility] [address]: NICOLE ANTONY RESIDENT SOURCE: VOID ENTR: 07/20/25-[address]: ROXANA REILLY DO [facility]: ORDERED: URC - Procedure Result - Urine Bacterial Culture Final Report <10,000 CFU/mL [facility] [address] [place], [place] [address] Danni Serrano M.D., Laboratory Assembler P[employer] Table - PATIENT: RAQUEL PARK ACCT: [id number] LOC: [facility] U: [id number] AGE/SX: 44/M ROOM: [facility] RE07/20/[address]: IRVIN SEVILLA RESIDENT : 1980 BED: A DIS: STATUS: ADM IN TLOC: - SPEC #: [id number] ELO: 07/20/25 STATUS: RES REQ #: [id number] RECD: 07/20/25-[address]: ROXANA REILLY DO SOURCE: BLOOD ENTR: 07/20/25 [facility] [address]: SPDES: ORDERED: BCULT - Procedure Result - Blood Culture Preliminary Report Positive Blood culture - Anaerobic bottle Time to detect: 22 Hr RESULT Gram Negative Rods GRAM STAIN: Called results to GERARDO GARZA RN at 1108 on 07/21/25 by PMEISY. Verbal read back confirmed. [facility] [address] [address] Danni Serrano M.D., Laboratory Assembler P[employer]ong Table - PATIENT: VIVIANAUDIE ACCT: [id number] LOC: [facility] U: [id number] AGE/SX: 44/M ROOM: [facility] RE07/20/[address]: IRVIN SEVILLA RESIDENT : 1980 BED: A DIS: STATUS: ADM IN TLOC: - SPEC #: [id number] ELO: 07/20/25-1134 STATUS: RES REQ #: [id number] RECD: 07/20/25-[address]: ROXANA REILLY DO SOURCE: BLOOD ENTR: 07/20/25-112 [facility] DR: SPDESSadia: ORDERED: BCULT - Procedure Result - Blood Culture Preliminary Report Positive Blood culture - Anaerobic bottle Time to detect: 23 Hr RESULT Gram Negative Rods GRAM STAIN: Called results to GERARDO GARZA RN at 1108 on 07/21/25 by [employer]. Verbal read back confirmed. Condition at Discharge: Stable Final Diagnosis/Problems List # Sepsis d/t bacteremia (repeat blood culture with no growth) and beta-hemolytic group C streptococci pharyngitis # Beta-Hemolytic Group C Streptococcus Pharyngitis; discharged on oral antibiotics # Acute hypoxic respiratory failure, resolved # Type 2 diabetes with hyperglycemia, uncontrolled # hepatic steatosis with likely secondary coagulopathy # Morbid Obesity Discharge Disposition: Home Discharge Instruct/Medications Diet: Consistent carbohydrate, Cardiac 2g Na,low cholest Diet comment: Low carb diet strictly avoid high sugar drinks and alcohol Activity: No Restrictions, As Tolerated Follow Up/Referral: Follow up in the discharge clinic in one week with daily morning and night blood glucose readings Medications: augmentin 875mg twice daily for 7 days doxycycline 100mg twice daily for 5 days metformin 500mg twice daily for 2 weeks continue sertraline as prescribed Scheduled Amoxicillin & Pot Clavulanate (Augmentin Tablet), 875 MG PO BID Doxycycline Monohydrate (Doxycycline Monohydrate), 1 CAP PO BID Metformin Hydrochloride (Metformin Hcl), 500 MG PO BID Discontinued Medications Hydrocortisone Acetate (Anusol-Hc), 1 SUPP CO BID Pantoprazole Sodium Sesquihydr (Protonix), 40 MG PO DAILY Discharge Statement: "Patient was advised to return to the ER or call 911 if any headaches, dizziness, shortness of breath, chest pain, abdominal pain, bleeding, fevers, or worsening of medical condition. Patient was counseled about treatment plan, medications, possible side effects, patientverbalized understanding. All questions were answered to the best of my ability. This discharge took greater then 30 minutes in planning, reviewing documentation, counseling the patient, and discussing with other team members." Date of Service: Jul 23, 2025 Billing Provider: FRANK LUKE MD Common Visit Codes: 97174-YYX/OBS DISCH DAY >30min Secondary Visit Codes: 69669-SUDRPFDL CARE PLAN 30 MINUTES (20 minutes) Addendum Addendum Addendum I was physically present for the rizvi portions of the service provided to patient by THE RESIDENT. I have reviewed the documentation, discussed the case with resident and agree with the resident's documentation except as noted. Also the patient's clinical case was discussed with the patient's nurse. This medical document was created using an electronic medical record system with computerized dictation system. Although this document has been carefully reviewed, there might still be some phonetic and typographical errors. These areas are purely typographical due to imperfections of the software programs, and do not reflect any compromise in the patient's medical care. Late signature. IRVIN SEVILLA Jul 23, 2025 15:48 FRANK LUKE MD Jul 25, 2025 12:32
[2025-07-23] MEDS ORDERED: INSULIN LANTUS (GLARGINE) 1 /0.01ml (100units/ml) SC SCH (22:00)
== END 2025-07-23 17:00 | disposition home or self-care (01) | DRG 720 ==
LOC: EDBD 11:10 → ER 11:10 → OVERFLOW 15:49 → WEST WING 22:19
PROVIDERS: ADMIT Internal Medicine; ATTEND Internal Medicine
DX: A41.9 Sepsis, unspecified organism (principal); J96.01 Acute respiratory failure with hypoxia; D68.9 Coagulation defect, unspecified; A05.0 Foodborne staphylococcal intoxication; E11.65 Type 2 diabetes mellitus with hyperglycemia; B34.9 Viral infection, unspecified; Z68.36 Body mass index [BMI] 36.0-36.9, adult; J02.8 Acute pharyngitis due to other specified organisms; E11.9 Type 2 diabetes mellitus without complications; Z20.822 Contact with and (suspected) exposure to COVID-19; E66.01 Morbid (severe) obesity due to excess calories
CPT/HCPCS: 36415; 70491; 71045; 72132; 76705; 80048; 80053; 80076; 80307; 80320; 80329; 81001; 82962; 83010; 83036; 83605; 83615; 83735; 84484; 85025; 85045; 85610; 85730; 87040; 87070; 87076; 87077; 87081; 87086; 87426; 87804; 87880; 93005; 96365; 96366; 96375; G0378; J1100; J1815; J1885; J2405; J2543

== ENCOUNTER 2025-08-13 09:04 | Emergency (ER) | payer MEDICAID ==
[~2025-08-13] VITALS: Ht 185.4 cm; Wt 122.2 kg
[~2025-08-13 09:04] MED LIST changes: +AUG875T PO; +DOXY1CAP57 PO; -HYDR25SU21 PR; +METF-370 PO; -PANT40TA2 PO
--- NOTE | 2025-08-13 09:27 | ED.PDOC ---
Back pain HPI HPI Comments A 44 YEAR OLD MALE PRESENTS TO THE ED WITH COMPLAINT OF LOWER BACK PAIN THAT RADIATES DOWN RIGHT LEG. PATIENT STATES HE HAS BEEN EXPERIENCING LOWER BACK PAIN THAT RADIATES DOWN HIS RIGHT LEG FOR THE PAST 1 MONTH. PATIENT REPORTS HIS PAIN IS WORSE WITH MOVEMENT. PATIENT DENIES SADDLE ANESTHESIA, URINARY INCONTINENCE, BOWEL INCONTINENCE, DYSURIA, HEMATURIA, FLANK PAIN, FEVER, CHILLS, SHORTNESS OF BREATH, CHEST PAIN, ABDOMINAL PAIN, NAUSEA, VOMITING, HEADACHE, OR OTHER COMPLAINTS. NO OTHER SYMPTOMS OR MODIFYING FACTORS AT THIS TIME. PATIENT IS ALERT, ORIENTED X 4, AND HAS STEADY GAIT. Chief Complaint: Back Pain Time Seen by MD: 09:06 Primary Care Provider: ZARIA Reviewed Notes: Nurses Notes, Medications, Allergies Allergies: Coded Allergies: NO KNOWN ALLERGIES (Unverified , 08/19/24) Home Meds Active Scripts Tramadol HCl (Tramadol HCl) 50 Mg Tab, 50 MG PO TID, #21 TAB Prov:LACY CORTEZ 08/13/25 Metformin Hydrochloride (Metformin Hcl) 500 Mg Tab, 500 MG PO BID for 14 Days, #28 TAB 0 Refills Prov:VITO HEDRICK 07/23/25 Doxycycline Monohydrate (Doxycycline Monohydrate) 100 Mg Cap, 1 CAP PO BID for 5 Days, #10 CAP 0 Refills Prov:VITO HEDRICK 07/23/25 Amoxicillin & Pot Clavulanate (AUGMENTIN TABLET) 875 Mg Tb, 875 MG PO BID for 7 Days, #14 TAB 0 Refills Prov:VITO HEDRICK 07/23/25 Information Source: Patient Mode of Arrival: Ambulatory Timing: Weeks Duration: Since onset Location of Back pain: (B) Lumbar Radiates to: Anterior: (R) Buttocks, (R) Calf, (R) Thigh Radiates to: Posterior: (R) Buttocks, (R) Calf, (R) Thigh Radiates to: Medial: (R) Buttocks, (R) Calf, (R) Thigh Radiates to: Lateral: (R) Buttocks, (R) Calf, (R) Thigh Severity: Moderate Prehospital treatment: None Quality: Aching, Cramping Onset: Bending, Lifing History of: Chronic Back Pain, None Modifying Factors: Movement Associated signs and symptoms: None Past Medical History PAST MEDICAL HISTORY: DM Surgical History: Denies all surgeries Family History Family History: Reviewed,noncontributory to illness Social History Smoker: Non-Smoker Alcohol: Denies ETOH Use Drugs: Denies Drug Use Lives In: Home Constitutional: denies: chills, diaphoresis, fatigue, fever, malaise, sweats, weakness, others EENTM: denies: blurred vision, double vision, ear bleeding, ear discharge, ear drainage, ear pain, ear ringing, eye pain, eye redness, hearing loss, mouth pain, mouth swelling, nasal discharge, nose bleeding, nose congestion, nose pain, photophobia, tearing, throat pain, throat swelling, voice changes, others Respiratory: denies: cough, hemoptysis, orthopnea, SOB at rest, shortness of breath, SOB with excertion, stridor, wheezing, others Cardiovascular: denies: chest pain, dizzy spells, diaphoresis, Dyspnea on exertion, edema, irregular heart beat, left arm pain, lightheadedness, palpitations, PND, syncope, others Gastrointestinal: denies: abdomen distended, abdominal pain, blood streaked bowels, constipated, diarrhea, dysphagia, difficulty swallowing, hematemesis, melena, nausea, poor appetite, poor fluid intake, rectal bleeding, rectal pain, vomiting, others Genitourinary: denies: burning, dysuria, flank pain, frequency, hematuria, in continence, penile discharge, penile sore, pain, testicle pain, testicle swelling, urgency, others Neurological: denies: dizziness, fainting, headache, left sided numbness, left sided weakness, numbness, paresthesia, pre-existing deficit, right sided numbness, right sided weakness, seizure, speech problems, tingling, tremors, weakness, others Musculoskeletal: reports: back pain (LOWER BACK PAIN THAT RADIATES DOWN RIGHT LEG), muscle pain; denies: gout, joint pain, joint swelling, muscle stiffness, neck pain, others Integumetry: denies: bruises, change in color, change in hair/nails, dryness, laceration, lesions, lumps, rash, wounds, others Allergic/Immunocompromised: denies: Difficulty Healing, Frequent Infections, Hives, Itching, others Hematologic/Lymphatic: denies: anemia, blood clots, easy bleeding, easy bruising, swollen glands, others Endocrine: denies: excessive hunger, excessive sweating, excessive thirst, excessive urination, flushing, intolerance to cold, intolerance to heat, unexplained weight gain, unexplained weight loss, others Psychiatric: denies: anxiety, bipolar disorder, depression, hopeless, panic disorder, schizophrenia, sleepless, suicidal, others All Other Systems: Reviewed and Negative Physical Exam General Appearance: No Apparent Distress, Obese HEENT: Normal ENT Inspection, PERRL/EOMI, Pharynx Normal, TMs Normal Neck: Full Range of Motion, Non-Tender, Normal, Normal Inspection Respiratory: Chest Non-Tender, Lungs Clear, No Accessory Muscle Use, No Respiratory Distress, Normal Breath Sounds Cardiovascular: No Edema, No JVD, No Murmur, No Gallop, Normal Peripheral Pulses, Regular Rate/Rhythm Breast Exam: Deferred Gastrointestinal: No Organomegaly, Non Tender, No Pulsatile Mass, Normal Bowel Sounds, Soft Genitalia: Deferred Pelvic: Deferred Rectal: Deferred Extremities: No calf tenderness, Normal capillary refill, Normal inspection, Normal range of motion, Non-tender, No pedal edema Musculoskeletal : Location: Bilateral Extremity Location: Back Apperance: Tenderness: Moderate (TENDERNESS AND MUSCLE SPASM ON LOWER BACK, NO BONY TENDERNESS AND SWELLING, NO DEFORMITY. 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 Was a procedure done?: No Back Pain Differential Dx Differential Diagnosis: Musculoskeletal Pain Other Differential Diagnosis SCIATICA, DDD, LUMBAR RADICULOPATHY X-Ray, Labs, Meds, VS Vital Signs Date Time Temp Pulse Resp B/P (MAP) Pulse Ox O2 Delivery O2 Flow Rate FiO2 08/13/25 09:06 99.1 98 18 120/81 97 99.1 PATIENT: RAQUEL PARK LACCT: [id number]: [id number] : 1980 LOC: ER ROOM / BED: / AGE / SEX: 44 / M ADM STATUS: REG ER SERVICE [id number] ORDERING PHYSICIAN: LACY CORTEZ PROCEDURE(s): LUMB2 - LUMBAR SPINE 3 VIEW REASON: PAIN, NO INJURY ORDER NUMBER(s): [id number], ACCESSION NUMBER(s): [id number] INDICATION: PAIN, NO INJURY COMPARISON: CT LS SPINE W CONTRAST on DOS: 07/21/25 TECHNIQUE: 3 views of the lumbar spine were obtained. FINDINGS: Mild multilevel degenerative disc disease of the lumbosacral spine. No acute fracture, vertebral compression deformity or aggressive osseous lesions. The paravertebral soft tissues are grossly unremarkable. IMPRESSION: No acute fracture. ATED BY: RHONDA HOLDEN MD DICTATED DATE/TIME: 08/13/25944 SIGNED BY: RHONDA HOLDEN MD SIGNED DATE/TIME: 08/13/25944 CC: X-Ray, Labs, Meds, VS Comment EXTERNAL MEDICAL RECORDS REVIEWED: [NONE] INDEPENDENT HISTORIANS: [NONE] SOCIAL DETERMINANTS OF HEALTH: [NONE] LABS ORDERED: NONE REVIEWED AND INTERPRETED RESULTS: NONE IMAGING ORDERED: XR L-SPINE: [INTERPRETED BY ME. DDD OF L5-S1 VISUALIZED. NO FRACTURES OR DISLOCATION. PENDING RADIOLOGIST REPORT.] TREATMENTS ORDERED: TORADOL 60 MG IM PROCEDURES PERFORMED: NONE CRITICAL CARE TIME: NONE I HAVE DISCUSSED THE PATIENT WITH THE ATTENDING PHYSICIAN DR. MASTERS AND HE AGREES WITH THE PATIENT'S PLAN OF CARE AND DISPOSITION. BASED ON HISTORY OF PRESENT ILLNESS, AND PHYSICAL EXAM, PATIENT WILL BE DISCHARGED HOME. DISCUSSED PLAN FOR DISCHARGE HOME WITH RX [TRAMADOL]. MEDICATION WARNINGS GIVEN. SHARED DECISION MAKING: DISCUSSED WITH PATIENT THAT THEIR WORKUP WAS NORMAL. PATIENT INSTRUCTED TO FOLLOW UP WITH PRIMARY CARE PROVIDER IN 1-2 DAYS FOR RE- EVALUATION OF SYMPTOMS. PATIENT VERBALIZES UNDERSTANDING TO RETURN TO ED FOR NEW OR WORSENING SYMPTOMS OR IF FOLLOW UP WITH PCP CANNOT BE OBTAINED. PATIENT FEELS COMFORTABLE GOING HOME AT THIS TIME. ALL QUESTIONS ADDRESSED AT TIME OF DISCHARGE. Images Reviewed?: Images reviewed and evaluated by me Time of 1ST Reevaluation: 10:20 Reevaluation 1ST: Improved Patient Education/Counseling: Diagnosis, Treatment, Need For Follow Up Family Education/Counseling: Diagnosis, Treatment, Need For Follow Up Medical Screening: No EMC Exist At This Time SEPSIS Sepsis Screen Date sepsis recognized/suspect: Aug 13, 2025 Time Sepsis recognized/suspect: 09 Recent Procedure: No On Antibiotic Therapy: No Respiratory Rate >20: No Heart Rate >90: Yes Temp<36 C (96.8 F) or >38.3 C: No SBP <90 or MAP <65 mmHG: No New Acute Mental Status Change: No Is the patient on CPAP, BIPAP,: No Physician Orders Lumbar Spine 3 View (08/13/25 09:17) Ketorolac Injection (Toradol Injection) (08/13/25 10:00) Vital Signs Date Time Temp Pulse Resp B/P (MAP) Pulse Ox O2 Delivery O2 Flow Rate FiO2 08/13/25 09:06 99.1 98 18 120/81 97 99.1 Departure 1 Departure Time of Disposition: : Impression: Primary Impression: DDD (degenerative disc disease), lumbar Qualified Codes: M51.362 - Other intervertebral disc degeneration, lumbar region with discogenic back pain and lower extremity pain Additional Impression: Lumbar radiculopathy Disposition: HOME / SELF CARE / HOMELESS Condition: Stable Additional Instructions: FOLLOW-UP WITH PCP IN 1 TO 2 DAYS FOR MRI STUDY. TAKE MEDICATIONS PRESCRIBED. RETURN TO ED FOR ANY NEW OR WORSENING SYMPTOMS. e-Prescriptions Tramadol HCl (Tramadol HCl) 50 Mg Tab 50 MG PO TID, #21 TAB Prov: LACY CORTEZ 08/13/25 Discharged With: Self Critical Care Note Critical Care Time?: No Stability Stability form required: No I personally scribed for LACY CORTEZ ([email or web address]) on 08/13/25 at 09:26. Electronically submitted by Jeffy Lawson ([email or web address]). I personally scribed for LACY CORTEZ ([email or web address]) on 08/13/25 at 09:46. Electronically submitted by Jeffy Lawson ([email or web address]). LACY CORTEZ Aug 13, 2025 09:26
--- NOTE | 2025-08-13 09:47 | DVH ---
INDICATION: PAIN, NO INJURY COMPARISON: CT LS SPINE W CONTRAST on DOS: 07/21/25 TECHNIQUE: 3 views of the lumbar spine were obtained. FINDINGS: Mild multilevel degenerative disc disease of the lumbosacral spine. No acute fracture, vertebral compression deformity or aggressive osseous lesions. The paravertebral soft tissues are grossly unremarkable. IMPRESSION: No acute fracture.
[2025-08-13] MEDS ORDERED: TRAM-626 PO (09:48)
[2025-08-13] MEDS: KETOROLAC TROMETH 60MG/2ML VIAL IM ONE (09:58)
[2025-08-13 10:01] VITALS: BP 120/81; PULSE 98; RESP 18; TEMP 99.1; O2SAT 97
== END 2025-08-13 10:03 | disposition home or self-care (01) ==
LOC: ER 09:04
DX: M51.362 Other intervertebral disc degeneration, lumbar region with discogenic back pain and lower extremity pain (principal); M51.16 Intervertebral disc disorders with radiculopathy, lumbar region; E11.9 Type 2 diabetes mellitus without complications; G89.29 Other chronic pain
CPT/HCPCS: 72100; 96372; 99283; J1885